=== PATIENT | female | born 1965 | race Caucasian/White ===

== ENCOUNTER 2017-10-16 11:07 | Emergency (ER) | payer OTHER, SELFPAY ==
[2017-10-16 11:10] VITALS: BP 136/72; PULSE 74; RESP 20; TEMP 36.7; O2SAT 97
[2017-10-16 11:26] LABS: Bilirubin Negative (Negative); Blood Trace-intact (Negative); Clarity Clear; Glucose Negative (Negative); Ketones Negative (Negative); Leukocyte Esterase Small (Negative); Nitrite Negative (Negative); Specific Gravity 1.015 (1.005-1.025); Urobilinogen 0.2 EU/dL (Up TO 0.2)
[2017-10-16 11:36] LABS: Bacteria Rare HPF (Negative); C & S Indicated? Yes; Casts Negative LPF (Negative); Crystals Negative HPF (Negative); Epithelial Cells Few HPF (Negative); Mucus Negative (Negative); Other Cells Few Renal (Negative); RBC 0-2 (0-2); WBC >50 HPF (0-5)
--- NOTE | 2017-10-16 11:54 | W.ED.GENAD ---
Discharge Plan Disposition Patient Disposition: HOME Condition: Fair Discharge Details Chief Complaint: Urinary Clinical Impression: UTI (urinary tract infection) Primary Care Provider: Zachery Greenwood ED Provider: Cat Gayle Home Meds and New Rx's Prescriptions: New cephalexin [Keflex] 500 mg capsule 500 mg PO BID Qty: 10 RF: 0 No Action multivitamin 1 EACH tablet 1 ea PO DAILY RF: 0 ascorbic acid (vitamin C) 1,000 MG tablet 2,000 mg PO DAILY RF: 0 omega-3 fatty acids-fish oil 1 EACH capsule 1 ea PO DAILY RF: 0 calcium carbonate-vitamin D3 [Calcium 600 with Vitamin D3] 1 EACH tablet,chewable 1 ea PO DAILY RF: 0 latanoprost 2.5 ML drops 1 drp OU DAILY RF: 0 hydrochlorothiazide 25 MG tablet 25 mg PO DAILY Qty: 90 RF: 4 Discharge Instructions Instructions: Urinary Tract Infection in Women (ED) Additional Instructions: Please encourage hydration. He may use Tylenol or ibuprofen as needed for discomfort. Pyridium will help with symptomatic management, please take as prescribed. Please take the entire course of Keflex, please finish the course even if symptoms are improved. If you continue to have persistent symptoms in the next, please follow-up with primary care. If you develop fever/chills, back pain, nausea/vomiting or other new/worsening symptoms please seek care urgently once again. Referrals: Zachery Greenwood, [Primary Care Provider] - Discharge Data Discharge Date/Time-TO BE ENTERED AT DEPARTURE: 10/16/17 12:07 Medical Decision Making MDM Narrative Medical decision making narrative: Patient presents today with 5 days of dysuria, increased frequency and urgency. She denies any fevers or chills. No CVA tenderness on exam, she denies any radiating pain. Reports that she has discomfort with urination and just after. Is not complaining of any discomfort right now. Reports that this morning she did have episode of incontinence she was unable to get to the bathroom in time. States otherwise she is feeling quite well. States it has been several years since her last urinary tract infection but the symptoms seem quite similar. She denies any new sexual partners. No dyspareunia. She denies any vaginal discharge. States that her urine has a foul odor Urinalysis concerning for small leukocytosis with WBC over 50, few epithelial cells, rare bacteria and trace amount of blood. This has been sent for culture. Given the findings of the urinalysis as well as her symptoms I am concerned for urinary tract infection. Patient will be placed on antibiotics also given a prescription for Pyridium to help with symptomatic management. Encouraged hydration. We discussed new/worsening symptoms when to seek care urgently once again. Advise follow-up with primary care in 1 week if symptoms have not completely improved. All of her questions and concerns were addressed and she is in agreement this plan Lab Data Lab Results 10/16/17 Range/Units 11:20 Urine Color Yellow (Yellow) Urine Clarity Clear Urine pH 7.0 (5-8) Ur Specific [place] 1.015 (1.005-1.025) Urine Protein Negative (Negative) mg/dL Urine Ketones Negative (Negative) mg/dL Urine Blood Trace-intact H (Negative) Urine Nitrite Negative (Negative) Urine Bilirubin Negative (Negative) Urine Urobilinogen 0.2 (Up TO 0.2) EU/dL Ur Leukocyte Esterase Small H (Negative) Urine RBC 0-2 (0-2) Urine WBC >50 (0-5) HPF Ur Epithelial Cells Few (Negative) HPF Urine Crystals Negative (Negative) HPF Urine Bacteria Rare (Negative) HPF Urine Casts Negative (Negative) LPF Urine Mucus Negative (Negative) Urine Other Few renal (Negative) Ur Culture Indicated? Yes Urine Glucose Negative (Negative) mg/dL HPI - General Adult General Mode of arrival: ambulatory. Date/Time Provider Initiated Documentation: 10/16/17 11:44. Limitations to Documentation: no limitations. Information obtained by: patient. History of Present Illness 52 year old F presents to the emergency department with the chief complaint of Dysurea, described as moderate, Quality is described as burning, and is localized to the pelvis (discomfort only with and after urination. None currently). Patient reports no radiation; denies radiation to back and abdomen. Patient started experiencing this day(s) (5) and it has been constant. No relieving factors improve symptom(s), No exacerbating factors reported . Patient notes no other symptoms.; denies fever/chills, loss of appetite, nausea/vomiting and rash. Patient did receive the following treatments prior to arrival, none Related Data Home Medications Medication Instructions Recorded Confirmed ascorbic acid (vitamin C) 2,000 mg PO DAILY 12/09/12 10/16/17 calcium carbonate-vitamin D3 1 ea PO DAILY tab.chew 12/09/12 10/16/17 [Calcium 600 With Vit D Chew Tb] multivitamin 1 ea PO DAILY 12/09/12 10/16/17 omega-3 fatty acids-fish oil 1 ea PO DAILY 12/09/12 10/16/17 latanoprost 1 drp OU DAILY drp 10/17/13 10/16/17 Previous Rx's Medication Instructions Recorded cephalexin [Keflex] 500 mg PO BID #10 cap 10/16/17 Allergies Allergy/AdvReac Type Severity Reaction Status Date / Time amlodipine AdvReac Intermediate edema Unverified 10/16/17 11:11 lisinopril AdvReac Intermediate cough Unverified 10/16/17 11:11 General Stated Complaint: Urinary SAIRA: 4 Review of Systems Constitutional Reports as per HPI, Denies chills and Denies fever(s) Cardiovascular Denies chest pain, Denies edema and Denies dyspnea Respiratory Denies cough and Denies dyspnea Gastrointestinal Reports as per HPI, Denies abdominal pain, Denies change in bowel habits, Denies nausea and Denies vomiting Genitourinary Reports as per HPI Musculoskeletal Denies back pain Integumentary/Breasts Denies erythema, Denies rash and Denies skin pain [facility] Medical History Glaucoma Hypertension Social History Smoking/Tobacco Use Status: Never Exam Const General: cooperative, healthy appearing, comfortable, no acute distress and well developed Nutritional Appearance: average body habitus Orientation: alert and awake Resp Effort & Inspection: normal respiratory effort, able to speak in complete sentences and no respiratory distress Auscultation: clear to auscultation bilaterally Cardio Rate: regular rate Rhythm: regular rhythm Heart Sounds: S1 normal and S2 normal GI Inspection: normal to inspection Palpation: soft, not firm, no guarding, not rigid and nontender Auscultation: normal bowel sounds Back/Spine/Pelvis Back: no CVA tenderness Skin General skin exam: no rashes or lesions noted Lesions: no lesions Rashes: no rashes Trauma: no lacerations or abrasions Neuro General: alert and awake Cognition: normal cognition Speech: speech normal Gait: normal gait Psych Appearance: grossly normal and well kempt Mental Status: mental status grossly normal Speech and Movement: speech and movement normal Mood: congruent mood Affect: normal affect Course Vital Signs Temperature 36.7 C 10/16/17 11:10 Pulse 74 10/16/17 11:10 Respiratory Rate 20 10/16/17 11:10 Blood Pressure 136/72 10/16/17 11:10 Pulse Oximetry 97 10/16/17 11:10 Temperature 36.7 C 10/16/17 11:10 Pulse 74 10/16/17 11:10 Respiratory Rate 20 10/16/17 11:10 Blood Pressure 136/72 10/16/17 11:10 Pulse Oximetry 97 10/16/17 11:10 Lab/Test Results Lab/Test Results: Laboratory Tests 10/16/17 11:20 Urine Color Yellow Urine Clarity Clear Urine pH 7.0 Ur Specific [place] 1.015 Urine Protein Negative Urine Ketones Negative Urine Blood Trace-intact H Urine Nitrite Negative Urine Bilirubin Negative Urine Urobilinogen 0.2 Ur Leukocyte Esterase Small H Urine RBC 0-2 Urine WBC >50 Ur Epithelial Cells Few Urine Crystals Negative Urine Bacteria Rare Urine Casts Negative Urine Mucus Negative Urine Other Few renal Ur Culture Indicated? Yes Urine Glucose Negative
[2017-10-16 12:06] VITALS: BP 138/80; PULSE 88; RESP 18; TEMP 36.8; O2SAT 99
== END 2017-10-16 12:07 | disposition home or self-care (01) ==
PROVIDERS: Student in an Organized Health Care Education/Training Program; Emergency Provider Physician Assistant; PCP Emergency Medicine
DX: N39.0 Urinary tract infection, site not specified (principal); B97.89 Other viral agents as the cause of diseases classified elsewhere; I10 Essential (primary) hypertension
CPT/HCPCS: 99283; 81003; 81015; 87086

== ENCOUNTER 2018-01-07 13:58 | Outpatient (REF) | payer OTHER, SELFPAY ==
--- NOTE | 2018-01-07 13:20 | PAPFT_PTH ---
PATIENT: Bel Carballo LOC: [facility] U#:[id number] AGE/SX: 52/F ROOM: RE01/07/[address]: Matilda Lemon : 1965 BED: DIS: 01/07/2018 SPEC #: [id number] RECD: 01/07/18 17:53 STATUS: LEVI REQ #: [id number] YOSI: 01/07/18 13:[address]: Matilda Lemon DEPT: [facility] Cytology RECD BY: Yeni Valenzuela ENTERED: 01/07/18 17:53 SP TYPE: PAPFT OTHR DR: Zachery Greenwood DO Tissues: 1 - CX/ENDOCX FOR PAP SMEARS Procedures: PAP THIN PREP/UVM Screening HPV DNA PROBE Comments: [id number]
== END 2018-01-07 14:18 ==
LOC: LBN 13:58
PROVIDERS: PCP Emergency Medicine; Visit Provider Obstetrics & Gynecology Gynecology
DX: Z12.4 Encounter for screening for malignant neoplasm of cervix (principal); Z11.51 Encounter for screening for human papillomavirus (HPV)
CPT/HCPCS: 88142; 87624

== ENCOUNTER 2018-01-18 01:02 | Outpatient (CLI) | payer OTHER, SELFPAY ==
--- NOTE | 2018-01-18 13:42 | DI.MAMMO_ITS ---
SYMPTOM/DIAGNOSIS: SCREENING, Z12.31 MAMMOGRAMS: Mammograms were interpreted according to the usual protocol including computer analysis with CAD system, tomosynthesis and C view imaging. Comparison with prior examinations. Breast density B. No suspicious masses or microcalcifications are seen. There is no definite evidence of malignancy. IMPRESSION: Negative mammogram. Routine screening is recommended. Category I. MQSA ASSESSMENT OF FINDINGS: Negative. Category 1. Patient will receive a letter notifying them of these results. BI-RADS category B. There are scattered areas of fibroglandular density.
== END 2018-01-18 01:22 ==
PROVIDERS: PCP Emergency Medicine; Visit Provider Obstetrics & Gynecology Gynecology
DX: Z12.31 Encounter for screening mammogram for malignant neoplasm of breast (principal)
CPT/HCPCS: 77063; 77067

== ENCOUNTER 2018-02-07 12:27 | Emergency (ER) | payer OTHER, SELFPAY ==
[2018-02-07 12:37] VITALS: BP 154/66; PULSE 63; RESP 20; TEMP 37.1; O2SAT 100
--- NOTE | 2018-02-12 11:13 | ED.GENADUL_ITS ---
Discharge Plan Disposition Patient Disposition: HOME Discharge Details Chief Complaint: RespSymp Clinical Impression: Cough Primary Care Provider: Zachery Greenwood ED Provider: Zakiya Leal Home Meds and New Rx's Prescriptions: Continued amino acids capsule PO RF: 0 Digestive Probiotic 3 billion cell capsule PO RF: 0 multivitamin 1 EACH tablet 1 ea PO DAILY RF: 0 ascorbic acid (vitamin C) 1,000 MG tablet 2,000 mg PO DAILY RF: 0 omega-3 fatty acids-fish oil 1 EACH capsule 1 ea PO DAILY RF: 0 latanoprost 2.5 ML drops 1 drp OU DAILY RF: 0 hydrochlorothiazide 25 mg tablet 25 mg PO DAILY Qty: 90 RF: 0 Discharge Instructions Instructions: Influenza (ED), Bacterial Pneumonia (ED), Acute Cough (ED) Additional Instructions: Please return to the emergency department if you develop any new or worsening symptoms or if you become otherwise concerned. It is extremely important that you make an appointment to be seen by your primary care doctor within the next 48 hours in follow-up for this visit. You have elected to leave the emergency department without testing for your condition. If you change your mind you may return at any time. Referrals: Zachery Greenwood, [Primary Care Provider] - Discharge Data Discharge Date/Time-TO BE ENTERED AT DEPARTURE: 02/07/18 13:47 Medical Decision Making Bel Carballo is a 52 y/o woman with h/o HTN who presented to the emergency department with 5 days of cough, body aches, nasal congestion, intermittent fevers. On exam Pt is very well and toxic appearing. Lungs clear to aucultation b/l, mucous membranes moist. Vital signs normal. Concern for flu, other viral URI, PNA, other. Exam/hx not c/w sepsis, PE, ACS, meningitis, other acute emergent life-threatening process. Plan for flu swab, CXR. Pt reports that she does not want to have the flu swab at this time. She also does want to wait for a chest xray. Pt reports that she came mostly to have a physical exam, and would prefer to wait and either return if she gets worse or see her PCP for persistent symptoms. I had a lengthy discussion with the Pt re: risks of leaving without recommended testing, that she may RTED at any time if she changes her mind, RTED precautions, and importance of outpt f/u with PCP. Pt verbalizes understand of the plan and is amenable. Medical Records Medical records reviewed: Yes I reviewed the patient's medical records. HPI General Mode of arrival: ambulatory . Date/Time Provider Initiated Documentation: 02/07/18 12:59 . Limitations to Documentation: no limitations . Information obtained by: patient, family, RN notes reviewed and old records reviewed . HPI Narrative: Bel Carballo is a 52 y/o woman with h/o HTN presenting to the emergency department with cough. Pt reports that for the past 5 days she has had productive cough, generalized body aches, runny nose and congestion, intermittent fever, and fatigue. SHe has felt mildly SOB with coughing, but otherwise has not had dyspnea. Pt reports that she came to the emergency department because she was concerned that she might have the flu or pneumonia. She denies pain other than general myalgias. No n/v/d, no rash, no n/t/weakness. Has been eating and drinking as usual. No recent travel. Related Data Home Medications Medication Instructions Recorded Confirmed ascorbic acid (vitamin C) 2,000 mg PO DAILY 12/09/12 02/07/18 multivitamin 1 ea PO DAILY 12/09/12 02/07/18 omega-3 fatty acids-fish oil 1 ea PO DAILY 12/09/12 02/07/18 latanoprost 1 drp OU DAILY drp 10/17/13 02/07/18 hydrochlorothiazide 25 mg tablet 25 mg PO DAILY #90 tab 12/14/17 02/07/18 L.acidophilus,gasseri,rhamnosus-B.bifidum,long cap PO cap 01/07/18 01/07/18 3 billion cell capsule amino acids capsule cap PO cap 01/07/18 01/07/18 Previous Rx's Medication Instructions Recorded hydrochlorothiazide 25 mg tablet 25 mg PO DAILY #90 tab 12/14/17 Allergies Allergy/AdvReac Type Severity Reaction Status Date / Time amlodipine AdvReac Intermediate edema Unverified 02/07/18 12:42 lisinopril AdvReac Intermediate cough Unverified 02/07/18 12:42 General Stated Complaint: RespSymp SAIRA: 3 Review of Systems Review of Systems Constitutional: reports fevers Eyes: denies eye pain ENT: denies facial pain, dental pain, reports mild sore throat Cardiovascular: denies chest pain, edema Respiratory: denies SOB, reports cough GI: denies abdominal pain, vomiting, diarrhea : denies flank pain MSK: denies back pain, neck pain, arthralgias, reports myalgias Skin: denies rash Neuro: denies headaches, lightheadedness, weakness PFSH Medical History Dry eyes (Acute) Dyspareunia (Acute) Multinodular goiter (Acute) Glaucoma Hypertension Social History household members: spouse and other details: is named Maynor. number of children: 1 frequency: daily duration: 15-30 minutes/day Smoking/Tobacco Use Status: Never alcohol intake: never substance use type: does not use seatbelt use: always Female Reproductive History Menstrual control method: none Menopause type: natural (2016) History History 1 Para Hx # Term Pregnancies 1 Multiple births Hx # Pregnancies Ectopic pregnancies AB induced Hx Number of Living Children AB spontaneous Exam Narrative Exam Narrative: Constitutional: well and [id number]-[id number], pleasant, conversing normally HENT: head atraumatic, normocephalic normal inspection, mucous membranes moist Eyes: conjunctiva normal, sclera normal, pupils 3mm b/l Neck: no stridor, normal ROM, trachea midline Resp: normal work of breathing, LCTAB Cardio: normal rate, normal rhythm, 3/6 murmur Pt reports as known to her Skin: warm, dry, normal color, no rash Neuro: alert, not altered, grossly non-focal, normal tone Ext: no edema Psych: normal mood, normal affect, normal behavior Course Vital Signs Temperature 37.1 C 02/07/18 12:37 Pulse 63 02/07/18 12:37 Respiratory Rate 20 02/07/18 12:37 Blood Pressure 154/66 H 02/07/18 12:37 Pulse Oximetry 100 02/07/18 12:37 Temperature 37.1 C 02/07/18 12:37 Temperature Source Temporal Artery Scan 02/07/18 12:37 Pulse 63 02/07/18 12:37 Respiratory Rate 20 02/07/18 12:37 Respiratory Effort Non-Labored 02/07/18 12:42 Respiratory Depth Normal 02/07/18 12:42 Blood Pressure 154/66 H 02/07/18 12:37 Blood Pressure Position Sitting 02/07/18 12:37 Pulse Oximetry 100 02/07/18 12:37 Oxygen Delivery Method Room Air 02/07/18 12:37 Oxygen Flow Rate 0 02/07/18 12:37 Pain Level 0 02/07/18 12:37
== END 2018-02-07 13:47 | disposition home or self-care (01) ==
PROVIDERS: Emergency Provider Student in an Organized Health Care Education/Training Program; PCP Emergency Medicine
DX: R05 Cough (principal); Z53.29 Procedure and treatment not carried out because of patient's decision for other reasons
CPT/HCPCS: 99282

== ENCOUNTER 2018-08-05 08:01 | Outpatient (CLI) | payer BC, SELFPAY ==
--- NOTE | 2018-08-05 13:59 | DI.US_ITS ---
SYMPTOMS/DIAGNOSIS: PELVIC AND PERINEAL PAIN, R10.2 PELVIC ULTRASOUND: Pelvic ultrasound was performed transabdominally and transvaginally. Please see the accompanying data sheet for measurements of pelvic structures. There is a 22 mm in diameter simple cyst of the right ovary. Otherwise, the ovaries are unremarkable in appearance. A 10 mm fundal uterine fibroid noted to the right of midline. Nabothian cysts noted. There is a probable endocervical polyp measuring about 11 x 4 x 8 mm in diameter with some intralesional vascular flow noted. No fluid identified in the cul-de-sac. Limited scanning of the kidneys is unremarkable. Endometrial stripe is homogeneous and about 9 mm in thickness. CONCLUSION: 1. Findings suggesting endometrial polyp just above the level of the cervix as described above. 2. Simple cyst, right ovary, 22 mm in greatest diameter.
== END 2018-08-05 08:21 ==
PROVIDERS: PCP Emergency Medicine; Visit Provider Nurse Practitioner Family
DX: R10.2 Pelvic and perineal pain (principal); N84.0 Polyp of corpus uteri; N83.291 Other ovarian cyst, right side; D25.9 Leiomyoma of uterus, unspecified
CPT/HCPCS: 76830; 76856

== ENCOUNTER 2019-01-24 09:37 | Outpatient (CLI) | payer BC, SELFPAY ==
--- NOTE | 2019-01-24 15:37 | DI.MAMMO_ITS ---
EXAM: MAMMO SCREENING CLINICAL HISTORY: Screening, Z12.39. TECHNIQUE: Full field digital CC and MLO mammographic images were obtained with 3D tomosynthesis and utilizing computer aided detection (CAD). COMPARISON: 2009 through 2017 FINDINGS: Breast Density - Category B - Scattered areas of fibroglandular density Masses/Architectural Distortion: None seen. Microcalcifications: No suspicious pleomorphic-type calcifications are seen. Skin Thickening/Nipple Retraction: None. Axilla: Unremarkable. IMPRESSION: 1. BI-RADS category 1, negative. No significant interval change with no specific features of maligna ncy noted. 2. Unless there is more urgent need, screening mammography is recommended, as per [employer] guidelines. BI-RADS Cat 1 - Negative Breast Density - Category B - Scattered areas of fibroglandular density A negative radiographic report should not delay biopsy if a dominant or clinically suspicious mass is present. Up to ten percent of cancers are not identified on mammography. A negative report may reinforce clinical impression. Adenosis and dense breasts may obscure an underlying neoplasm. False positive reports average 6 to 10%. Patient will receive a letter notifying them of these results.
== END 2019-01-24 09:57 ==
PROVIDERS: PCP Emergency Medicine; Visit Provider Obstetrics & Gynecology Gynecology
DX: Z12.31 Encounter for screening mammogram for malignant neoplasm of breast (principal)
CPT/HCPCS: 77063; 77067

== ENCOUNTER 2020-02-13 00:57 | Outpatient (CLI) | payer BC, SELFPAY ==
--- NOTE | 2020-02-13 16:00 | DI.MAMMO_ITS ---
EXAM: MG MAMMO SCREENING CLINICAL HISTORY: screening. TECHNIQUE: Bilateral full field digital CC and MLO mammographic images were obtained with 3D tomosyn thesis and utilizing computer aided detection (CAD). COMPARISON: Prior mammograms dating back to 2010, the most recent being January 2019. FINDINGS: There are no CAD designations. There are no spiculated masses nor malignant appearing microcalcification groups. There is no signif icant architectural distortion nor skin thickening-retraction. IMPRESSION: No radiographic evidence of malignancy. BI-RADS Category 1 - Negative Breast Density - Category B - Scattered areas of fibroglandular density Breast density Category C or D implies that the patient has dense breast tissue. Dense breast tissue can make it harder to find cancer on a mammogram. Dense breast tissue is also associated with an incr eased risk of breast cancer. This information about the result of the mammogram report was provided to the patient to raise their awareness. Use this report when you speak with the patient about their risks for breast cancer, which includes their family history. At that time, you may recommend additional screening tests (Ultrasoun d or MRI) as these tests may add significant information. A negative radiographic report should not delay biopsy if a dominant or clinically suspicious mass is present. Up to ten percent of cancers are not identified on mammography. A negative report may reinforce clinical impression. Adenosis and dense breasts may obscure an underlying neoplasm. False positive reports average 6 to 10%. Patient will receive a letter notifying them of these results.
== END 2020-02-13 01:17 ==
PROVIDERS: PCP Emergency Medicine; Visit Provider Nurse Practitioner Family
DX: Z12.31 Encounter for screening mammogram for malignant neoplasm of breast (principal)
CPT/HCPCS: 77063; 77067

== ENCOUNTER 2021-02-13 15:58 | Outpatient (REF) | payer BC, SELFPAY ==
--- NOTE | 2021-02-13 15:15 | PAPFT_PTH ---
PATIENT: Bel Carballo LOC: [facility] U#:[id number] AGE/SX: 55/F ROOM: RE02/13/[address]: Matilda Lemon : 1965 BED: DIS: 02/13/2021 SPEC #: [id number] RECD: 02/13/21 17:53 STATUS: LEVI REPrachi #: [id number] YOSI: 02/13/21 15:[address]: Matilda Lemon DEPT: [facility] Cytology RECD BY: Yeni Valenzuela ENTERED: 02/13/21 17:53 SP TYPE: PAPFT OTHR DR: Zachery Greenwood, Tissues: 1 - CX/ENDOCX FOR PAP SMEARS Procedures: PAP THIN PREP/UVM Screening HPV DNA PROBE Comments: [id number]
== END 2021-02-13 15:59 | disposition home or self-care (01) ==
LOC: LBN 15:58
PROVIDERS: PCP Emergency Medicine; Visit Provider Obstetrics & Gynecology Gynecology
DX: Z12.4 Encounter for screening for malignant neoplasm of cervix (principal); Z11.51 Encounter for screening for human papillomavirus (HPV); Z01.419 Encounter for gynecological examination (general) (routine) without abnormal findings
CPT/HCPCS: 88142; 87624

== ENCOUNTER 2021-02-19 01:05 | Outpatient (CLI) | payer BC, SELFPAY ==
--- NOTE | 2021-02-19 16:30 | DI.MAMMO_ITS ---
Exam(s) MAMMO SCREENING EXAM: MAMMO SCREENING CLINICAL HISTORY: screening. TECHNIQUE: Bilateral full field digital CC and MLO mammographic images were obtained with 3D tomosyn thesis and utilizing computer aided detection (CAD). COMPARISON: Prior mammograms dating back to 2011, the most recent being February 2020. FINDINGS: There are no CAD designations. There are no new spiculated masses nor malignant appearing microcalcification groups. There is no significant architectural distortion nor skin thickening-retraction. IMPRESSION: No radiographic evidence of malignancy. BI-RADS Category 1 - Negative Breast Density - Category B - Scattered areas of fibroglandular density Breast density Category C or D implies that the patient has dense breast tissue. Dense breast tissue can make it harder to find cancer on a mammogram. Dense breast tissue is also associated with an incr eased risk of breast cancer. This information about the result of the mammogram report was provided to the patient to raise their awareness. Use this report when you speak with the patient about their risks for breast cancer, which includes their family history. At that time, you may recommend additional screening tests (Ultrasoun d or MRI) as these tests may add significant information. A negative radiographic report should not delay biopsy if a dominant or clinically suspicious mass is present. Up to ten percent of cancers are not identified on mammography. A negative report may reinforce clinical impression. Adenosis and dense breasts may obscure an underlying neoplasm. False positive reports average 6 to 10%. Patient will receive a letter notifying them of these results.
== END 2021-02-19 01:25 ==
PROVIDERS: PCP Emergency Medicine; Visit Provider Obstetrics & Gynecology Gynecology
DX: Z12.31 Encounter for screening mammogram for malignant neoplasm of breast (principal)
CPT/HCPCS: 77063; 77067

== ENCOUNTER 2022-02-04 15:05 | Outpatient (CLI) | payer BC, SELFPAY ==
--- NOTE | 2022-02-04 14:45 | DI.RAD_ITS ---
Exam(s) XR CHEST 2V PA LATERAL EXAM: XR CHEST 2V PA LATERAL CLINICAL HISTORY: posterior cervical lymphadenopathy,r59.1 TECHNIQUE: 2D digital imaging was performed of the chest. Two images were obtained. PA and lateral views were obtained. COMPARISON: No exams were available for comparison FINDINGS: MEDIASTINUM: Normal. HEART: Normal. PULMONARY VASCULATURE: Normal. LUNGS: Clear. PLEURAL SPACE: No pleural effusion or pneumothorax. BONE:Within normal limits for the patient's age. OTHER FINDINGS:Normal. IMPRESSION: No acute pulmonary findings. DATA REPOSITORY: RADIATION DOSE DELIVERED:
== END 2022-02-04 15:25 ==
PROVIDERS: PCP Nurse Practitioner Family; Visit Provider Nurse Practitioner Family
DX: R59.0 Localized enlarged lymph nodes (principal)
CPT/HCPCS: 71046

== ENCOUNTER 2022-02-05 13:07 | Outpatient (REF) | payer BC, SELFPAY ==
[2022-02-04 21:13] LABS: Abs Immature Grans 0.01 10^3/uL (0.0-0.06); Absolute Basophil Count 0.03 10^3/uL (0.0-0.2); Absolute Lymphocyte Count 1.16 10^3/uL (1.2-3.4); Absolute Monocyte Count 0.39 10^3/uL (0.1-0.8); Absolute Neutrophil Count 4.23 10^3/uL (1.2-6.7); Basophils % 0.5; Eosinophils % 3.3; HCT 43.4 % (36.0-46.0); HGB 14.2 g/dL (11.2-15.7); Immature Grans % 0.2; Lymphocytes % 19.3; MCH 28.5 pg (27.0-33.0); MCHC 32.7 % (32.0-36.0); MCV 87 fL (80-95); MPV 10.9 fL (8.0-11.0); Monocytes % 6.5; Neutrophils % 70.2; Platelet Count 161 10^3/uL (130-400); RBC 4.98 10^6/uL (3.93-5.22); RDW 13.2 % (11.7-14.6); RDW-SD 41.9 fL; WBC 6.02 10^3/uL (4.4-10.8)
[2022-02-04 21:32] LABS: ALT 36 U/L (14-59); AST 30 U/L (15-37); Albumin 4.1 g/dL (3.4-5.0); Alkaline Phosphatase 115 U/L (46-116); BUN 21 mg/dL (7-18); Bilirubin, Total 0.6 mg/dL (0.2-1.0); CREATININE 0.8 mg/dL (0.55-1.02); Calcium 8.9 mg/dL (8.5-10.1); Calculated LDL 136 mg/dL (<100); Chloride 104 mmol/L (98-107); Cholesterol 225 mg/dL (<200); Estimated GFR 85.89 (mL/min/1.73m2); Glucose 114 mg/dL (74-106); HDL Cholesterol 78 mg/dL (40-60); Potassium 3.7 mmol/L (3.5-5.1); Sodium 141 mmol/L (136-145); TSH (W/Ref FT4) 0.82 uIU/mL (0.36-3.74); Triglyceride 58 mg/dL (<150)
[2022-02-04 21:48] LABS: Mono Screening Negative (Negative)
[2022-02-06 09:50] LABS: HIV-1/2 Ag & Ab Screen Negative (Negative)
[2022-02-06 10:17] LABS: Hepatitis C Ab w Rflx HCV PCR Negative (Negative)
== END 2022-02-05 13:08 | disposition home or self-care (01) ==
LOC: LBN 13:07
PROVIDERS: PCP Nurse Practitioner Family; Visit Provider Nurse Practitioner Family
DX: R59.1 Generalized enlarged lymph nodes (principal); I10 Essential (primary) hypertension; Z11.59 Encounter for screening for other viral diseases
CPT/HCPCS: 80053; 80061; 86803; 87389; 84443; 85025; 86308

== ENCOUNTER 2022-03-02 01:25 | Outpatient (CLI) | payer BC, SELFPAY ==
--- NOTE | 2022-03-02 06:30 | DI.MAMMO_ITS ---
Exam(s) MAMMO SCREENING EXAM: MAMMO SCREENING CLINICAL HISTORY: screening,z12.39 TECHNIQUE: Mammograms were interpreted according to the usual protocol including computer analysis w [employer] CAD system, tomosynthesis and C-view imaging. COMPARISON: CR XR CHEST 2V PA LATERAL from 02/04/2022 mammograms 2012 through 2021 FINDINGS: The breasts are composed of scattered fibroglandular densities, Breast Density category B. No suspicious masses or suspicious microcalcifications are seen. No skin thickening is seen. There has been interval enlargement of bilateral axillary lymph nodes wh en compared with the previous examinations. There has been no significant change in the appearance of the breasts from prior exams. IMPRESSION: BI-RADS Category 0 - Assessment Incomplete: Need additional imaging evaluation. Enlarged axillary ly mph nodes. Clinical correlation recommended regarding adenopathy in other sites. A CT could be perf ormed for further evaluation. No abnormality identified in the breast tissue. Yearly screening mammography is recommended. Breast Density - Category B, scattered fibroglandular densities. A negative radiographic report should not delay biopsy if a dominant or clinically suspicious mass is present. Up to ten percent of cancers are not identified on mammography. A negative report may reinforce clinical impression. Adenosis and dense breasts may obscure an underlying neoplasm. False positive reports average 6 to 10%. Patient will receive a letter notifying them of these results.
== END 2022-03-02 01:45 ==
PROVIDERS: PCP Nurse Practitioner Family; Visit Provider Nurse Practitioner Family
DX: Z12.31 Encounter for screening mammogram for malignant neoplasm of breast (principal); R59.0 Localized enlarged lymph nodes; R92.8 Other abnormal and inconclusive findings on diagnostic imaging of breast
CPT/HCPCS: 77063; 77067

== ENCOUNTER 2022-03-09 15:42 | Outpatient (REF) | payer BC, SELFPAY ==
--- NOTE | 2022-03-09 15:00 | PAPNONF_PTH ---
PATIENT: Bel Carballo LOC: [facility] U#:[id number] AGE/SX: 57/F ROOM: RE03/09/[address]: James Hyman MD : 1965 BED: DIS: 03/09/2022 SPEC #: [id number] RECD: 03/09/22 18:27 STATUS: LEVI REPrachi #: [id number] YOSI: 03/09/22 15:[address]: James Hyman DEPT: [facility] Cytology RECD BY: Yeni Valenzuela ENTERED: 03/09/22 18:29 SP TYPE: [facility] [place] DR: Kwesi Fisher DNP Tissues: 1 - BODY FLUID CYTO-FINE NEEDLE ASPIRATE-[facility] Procedures: BODY FLUID CYTO-FINE NEEDLE ASPIRATE-[facility] Comments: [id number] (REFRIGERATED)
== END 2022-03-09 15:43 | disposition home or self-care (01) ==
LOC: LBN 15:42
PROVIDERS: PCP Nurse Practitioner Family; Visit Provider Otolaryngology
DX: R59.0 Localized enlarged lymph nodes (principal); Z80.7 Family history of other malignant neoplasms of lymphoid, hematopoietic and related tissues
CPT/HCPCS: 88104

== ENCOUNTER 2022-06-08 09:42 | Day surgery (SDC) | payer BC, SELFPAY ==
[2022-06-08 10:31] VITALS: BP 145/71; PULSE 68; RESP 16; TEMP 37; O2SAT 99
[2022-06-08] MEDS: Lidocaine 1% Multi-Dose W/EPI 1/100,000 50 ML VIAL (11:46)
--- NOTE | 2022-06-08 12:11 | LYM_PTH ---
PATIENT: Bel Carballo LOC: [facility] U#:[id number] AGE/SX: 57/F ROOM: RE06/08/[address]: James Hyman MD : 1965 BED: DIS: 06/08/2022 SPEC #: [id number] RECD: 06/08/22 12:48 STATUS: LEVI REQ #: [id number] YOSI: 06/08/22 12:[address]: James Hyman DEPT: Surgical Specimen RECD BY: Yeni Valenzuela ENTERED: 06/08/22 12:50 SP TYPE: LYM OTHR DR: Kwesi Fisher, RAÚL Tissues: 1 - LYMPH NODE BIOPSY 2 - FLOW CYTOMETRY NODE/TISSUE Procedures: GROSS AND MICRO LEVEL 4 IMMUNOPEROXIDASE STAIN FLOW CYTOMETRY LYMPHOMA PNL Comments: [id number] (FLOW CYTOMETRY - [id number])
--- NOTE | 2022-06-08 12:22 | PDOC.DSDIS_ITS ---
Date of service: 06/08/22 Time of Service: 12:24 Discharge Plan Disposition Patient Disposition: Home Condition: Good Discharge Details Reason For Visit: Lymph node biopsy Attending Provider: James Hyman Primary Care Provider: Kwesi Chavez Home Meds and New Rx's Prescriptions: No Action timolol 0.5 % drops 1 drp ophthalmic (eye) BID hydrochlorothiazide 25 mg tablet 25 mg PO DAILY Qty: 90 3RF magnesium gluconate 27 mg magnesium (500 mg) tablet 27 mg PO HS cranberry extract PO multivitamin 1 EACH tablet 1 ea PO DAILY omega-3 fatty acids-fish oil 1 EACH capsule 1 ea PO DAILY latanoprost 2.5 ML drops 1 drp OU DAILY ascorbic acid (vitamin C) 1,000 mg tablet 2 g PO DAILY Rx Instructions: 2 TABS DAILY Discharge Instructions Additional Instructions: Remove dressing after shower tomorrow and do not replace. Apply bacitracin 2 times daily for 3 days once the bandages removed. Avoid heavy lifting or straining for the next couple of days. Ibuprofen or Tylenol for discomfort. Call with any concerns or problems. My cell phone number is [phone]. If you are unable to reach me and you feel it is an emergency, please proceed to the emergency room or call 911 Referrals: James Hyman MD [ [facility] STAFF PHYSICIAN] - (To be determined by biopsy outcome-I will call the patient) Diet:: As Tolerated
--- NOTE | 2022-06-08 12:26 | ROE_ITS ---
Date of service: 06/08/22 Time of Service: 12:26 Operative Note Operative Note DATE OF PROCEDURE: 06/08/22 PRE-OP DIAGNOSIS: Lymphadenopathy POST-OP DIAGNOSIS: same PROCEDURE: Open biopsy, right posterior triangle cervical lymph node SURGEON: James Hyman MANAGER CREATIVE SERVICES: Griselda Casas ANESTHESIA TYPE: Local By Surgeon Refer to Anesthesia Record ESTIMATED BLOOD LOSS: 2 PATHOLOGY: other (RPMI specimen for flow cytometry, permanent specimen as well) COMPLICATIONS: None Patient was transported to: PACU Patient's condition: stable Indications: The patient has persistent bilateral cervical lymphadenopathy with the largest lymph nodes in the right posterior triangle. FNA was consistent with inflammatory lymph node, but the lymphadenopathy remains. I recommended open biopsy. The patient wished to proceed. Risks and benefits were discussed at length. Consent was obtained prior to surgery. H&P was reviewed. There have been no changes. Findings: Friable lymph node, right posterior triangle, mobile Procedure Description: The patient was positioned in a supine position with her head turned to the left. She was prepped and draped in appropriate fashion. 1% lidocaine with 1/100,000 epinephrine was injected around the lesion and then a transverse incision was made measuring approximately 1.5 cm over the lymph node. Dissection was continued down through the platysma plane to the lymph nodes. The lymph nodes were found to be very friable and as a result it was removed piecemeal. There is no significant bleeding. Once the lymph node been removed, it was partially morselized and placed into RPMI and partially placed in formalin for permanent section. After ensuring adequate hemostasis, and palpating the wound to make sure there is no residual lymph node, the wound was closed in a single layer of inverted interrupted 4.0 Monocryl sutures. Sterile dressing was applied. The patient tolerated the procedure well. Her vital signs remained stable. She was transported back to recovery room in stable co ndition. I was present throughout the entire case.
[2022-06-08 12:27] VITALS: BP 160/69; PULSE 63; RESP 16; TEMP 36.5; O2SAT 98
[2022-06-08] MEDS: Ibuprofen 600 MG TAB PO (12:59)
== END 2022-06-08 13:03 | disposition home or self-care (01) ==
PROVIDERS: PCP Nurse Practitioner Family; Visit Provider Otolaryngology
PROC: 0HB4XZZ Excision of Neck Skin, External Approach (ICD-10-PCS; CPT 38510; principal; 2022-06-08 11:45)
DX: C82.91 Follicular lymphoma, unspecified, lymph nodes of head, face, and neck (principal)
CPT/HCPCS: 38510; 88305; 88184; 88185; 88361

== ENCOUNTER 2022-09-04 01:26 | Outpatient (CLI) | payer BC, SELFPAY ==
[2022-09-04 15:25] LABS: Abs Immature Grans 0.01 10^3/uL (0.0-0.06); Absolute Basophil Count 0.02 10^3/uL (0.0-0.2); Absolute Eosinophil Count 0.11 10^3/uL (0.0-0.7); Absolute Lymphocyte Count 0.97 10^3/uL (1.2-3.4); Absolute Monocyte Count 0.39 10^3/uL (0.1-0.8); Absolute Neutrophil Count 3.16 10^3/uL (1.2-6.7); Basophils % 0.4; Eosinophils % 2.4; HCT 43.9 % (36.0-46.0); HGB 14.9 g/dL (11.2-15.7); Immature Grans % 0.2; Lymphocytes % 20.8; MCH 28.9 pg (27.0-33.0); MCHC 33.9 % (32.0-36.0); MCV 85 fL (80-95); MPV 9.8 fL (8.0-11.0); Monocytes % 8.4; Neutrophils % 67.8; Platelet Count 148 10^3/uL (130-400); RBC 5.16 10^6/uL (3.93-5.22); RDW 12.1 % (11.7-14.6); RDW-SD 37.5 fL; WBC 4.66 10^3/uL (4.4-10.8)
[2022-09-04 16:57] LABS: ALT 40 U/L (14-59); AST 37 U/L (15-37); Albumin 4.2 g/dL (3.4-5.0); Alkaline Phosphatase 98 U/L (46-116); Anion Gap 6.4 mmol/L (3-11); BUN 28 mg/dL (7-18); Bilirubin, Total 0.6 mg/dL (0.2-1.0); CO2 33.6 mmol/L (21.0-32.0); CREATININE 0.8 mg/dL (0.55-1.02); Calcium 9.5 mg/dL (8.5-10.1); Chloride 99 mmol/L (98-107); Estimated GFR 85.35 (mL/min/1.73m2); Glucose 126 mg/dL (74-106); LDH 195 U/L (81-234); Potassium 3.7 mmol/L (3.5-5.1); Sodium 139 mmol/L (136-145); Total Protein 7.5 g/dL (6.4-8.2)
== END 2022-09-04 01:27 | disposition home or self-care (01) ==
LOC: LBO 01:26
PROVIDERS: PCP Nurse Practitioner Family; Visit Provider Internal Medicine Hematology & Oncology
DX: C82.91 Follicular lymphoma, unspecified, lymph nodes of head, face, and neck (principal)
CPT/HCPCS: 36415; 80053; 83615; 85025

== ENCOUNTER → 2023-03-08 01:29 | Outpatient (CLI) | payer BC, SELFPAY ==
--- NOTE | 2023-03-08 08:00 | DI.MAMMO_ITS ---
Exam(s) MAMMO SCREENING EXAM: MAMMO SCREENING CLINICAL HISTORY: screening,Z12.39 TECHNIQUE: Bilateral full field digital CC and MLO mammographic images were obtained with 3D tomosyn thesis and utilizing computer aided detection (CAD). COMPARISON: Available for comparison. FINDINGS: Masses/Architectural Distortion: None seen. Microcalcifications: No suspicious pleomorphic-type are seen. Skin Thickening/Nipple Retraction: None. There are enlarged lymph nodes seen in the left axilla. IMPRESSION: 1. No significant interval change with no specific features of malignancy noted. 2. Unless there is more urgent need, screening mammography is recommended, as per [place] [employer] guidelines. 3. Enlarged left axillary lymph nodes are again seen. The patient has a personal history of follicul ar lymphoma. If clinically indicated, a CT scan of the chest may be obtained for further evaluation. BI-RADS Category 1 - Negative Breast Density - Category B - Scattered areas of fibroglandular density Breast density category C or D implies that the patient has dense breast tissue. Dense breast tissue is very common and is not abnormal but dense breast tissue can make it harder to find cancer on a ma mmogram. Also, dense breast tissue may increase their breast cancer risk. This information about the result of the mammogram report was provided to the patient to raise their awareness. Use this report when you speak with the patient about their risks for breast cancer, which includes their family hist ory. At that time, you may recommend for more screening tests (Ultrasound or MRI) as they might be us eful based on their risk. A negative radiographic report should not delay biopsy if a dominant or clinically suspicious mass is present. Up to ten percent of cancers are not identified on mammography. A negative report may reinforce clinical impression. Adenosis and dense breasts may obscure an underlying neoplasm. False positive reports average 6 to 10%. Patient will receive a letter notifying them of these results.
== END ==
PROVIDERS: PCP Nurse Practitioner Family; Visit Provider Obstetrics & Gynecology Gynecology
DX: Z12.31 Encounter for screening mammogram for malignant neoplasm of breast (principal)
CPT/HCPCS: 77063; 77067

== ENCOUNTER 2023-03-17 02:47 | Outpatient (CLI) | payer BC, SELFPAY ==
[2023-03-17 15:33] LABS: Abs Immature Grans 0.03 10^3/uL (0.0-0.06); HCT 43.4 % (36.0-46.0); HGB 14.4 g/dL (11.2-15.7); MCH 29.3 pg (27.0-33.0); MCHC 33.2 % (32.0-36.0); MCV 88 fL (80-95); MPV 9.3 fL (8.0-11.0); Platelet Count 134 10^3/uL (130-400); RBC 4.92 10^6/uL (3.93-5.22); RDW 13.3 % (11.7-14.6); RDW-SD 43.1 fL; WBC 17.86 10^3/uL (4.4-10.8)
[2023-03-17 15:48] LABS: Absolute Lymphocyte Count 14.29 10^3/uL (1.2-3.4); Absolute Monocyte Count 0.36 10^3/uL (0.1-0.8); Absolute Neutrophil Count 3.21 10^3/uL (1.2-6.7); Atypical Lymphocytes % 3
[2023-03-17 15:49] LABS: Diff Comment Manual Differential; RBC Morphology Normal
[2023-03-17 16:33] LABS: ALT 32 U/L (14-59); AST 28 U/L (15-37); Albumin 3.8 g/dL (3.4-5.0); Alkaline Phosphatase 122 U/L (46-116); Anion Gap 8.9 mmol/L (3-11); BUN 23 mg/dL (7-18); Bilirubin, Total 0.8 mg/dL (0.2-1.0); CO2 32.1 mmol/L (21.0-32.0); CREATININE 0.8 mg/dL (0.55-1.02); Calcium 9.7 mg/dL (8.5-10.1); Chloride 100 mmol/L (98-107); Estimated GFR 84.82 (mL/min/1.73m2); Ferritin 227 ng/mL (8-252); Glucose 119 mg/dL (74-106); Potassium 3.7 mmol/L (3.5-5.1); Sodium 141 mmol/L (136-145); Total Protein 7.5 g/dL (6.4-8.2)
[2023-03-17 16:52] LABS: Iron 33 ug/dL (50-170); Total Iron Binding Capacity 301 ug/dL (250-450); Transferrin Sat 11 % (15-50)
[2023-03-17 16:57] LABS: LDH 240 U/L (81-234)
== END 2023-03-17 02:48 | disposition home or self-care (01) ==
LOC: LBO 02:47
PROVIDERS: PCP Nurse Practitioner Family; Visit Provider Internal Medicine Hematology & Oncology
DX: I10 Essential (primary) hypertension (principal)
CPT/HCPCS: 36415; 80048; 80053; 82728; 83540; 83550; 83615; 85025

== ENCOUNTER 2023-05-05 04:36 | Outpatient (RCR) | payer BC, SELFPAY ==
[2023-05-05] MEDS: Normal Saline Flush 10 ML SYR IVP (08:42)
[2023-05-05 08:57] LABS: Abs Immature Grans 0.07 10^3/uL (0.0-0.06); Absolute Neutrophil Count 4.12 10^3/uL (1.2-6.7); Basophils % 0.1; Eosinophils % 0.3; HCT 41.1 % (36.0-46.0); HGB 13.7 g/dL (11.2-15.7); Immature Grans % 0.1; Lymphocytes % 89.7; MCH 29.8 pg (27.0-33.0); MCHC 33.3 % (32.0-36.0); MCV 90 fL (80-95); MPV 9.7 fL (8.0-11.0); Monocytes % 1.1; Neutrophils % 8.7; Platelet Count 124 10^3/uL (130-400); RBC 4.59 10^6/uL (3.93-5.22); RDW 13.5 % (11.7-14.6); RDW-SD 43.8 fL
[2023-05-05 09:10] LABS: Absolute Basophil Count 0.05 10^3/uL (0.0-0.2); Absolute Eosinophil Count 0.14 10^3/uL (0.0-0.7); Absolute Lymphocyte Count 42.46 10^3/uL (1.2-3.4); Absolute Monocyte Count 0.52 10^3/uL (0.1-0.8)
[2023-05-05 09:17] LABS: ALT 38 U/L (14-59); AST 37 U/L (15-37); Albumin 3.7 g/dL (3.4-5.0); Alkaline Phosphatase 125 U/L (46-116); Anion Gap 6.5 mmol/L (3-11); BUN 20 mg/dL (7-18); Bilirubin, Total 0.6 mg/dL (0.2-1.0); CO2 30.5 mmol/L (21.0-32.0); CREATININE 0.7 mg/dL (0.55-1.02); Calcium 9.3 mg/dL (8.5-10.1); Chloride 104 mmol/L (98-107); Estimated GFR 99.57 (mL/min/1.73m2); Glucose 89 mg/dL (74-106); LDH 267 U/L (81-234); PHOSPHORUS 4.1 mg/dL (2.6-4.7); Sodium 141 mmol/L (136-145); Uric Acid 4.1 mg/dL (2.6-6.0)
[2023-05-05 09:27] LABS: WBC 47.33 10^3/uL (4.4-10.8)
[2023-05-05 09:28] LABS: Diff Comment Agrees w/ Instrument; RBC Morphology Normal
== END 2023-05-09 23:59 | disposition home or self-care (01) ==
LOC: INF 04:36
PROVIDERS: Nurse Practitioner Adult Health; PCP Nurse Practitioner Family; Visit Provider Internal Medicine Hematology & Oncology
DX: C82.90 Follicular lymphoma, unspecified, unspecified site (principal); Z45.2 Encounter for adjustment and management of vascular access device
CPT/HCPCS: 36591; 80053; 83615; 84100; 84550; 85025

== ENCOUNTER 2023-05-17 09:07 | Emergency (ER) | payer BC, SELFPAY ==
[2023-05-17 09:12] VITALS: BP 130/62; PULSE 87; RESP 18; TEMP 36.6
--- NOTE | 2023-05-17 11:01 | W.ED.GENAD ---
Discharge Plan Disposition Patient Disposition: Home Condition: Stable Discharge Details Clinical Impression: Rash, Allergic reaction Primary Care Provider: Kwesi Chavez ED Provider: Priscilla Perez Home Meds and New Rx's Prescriptions: New prednisone 20 mg tablet 40 mg PO DAILY 5 Days Qty: 10 0RF Rx Instructions: Take 2 tablets daily x 5 days Continued timolol 0.5 % drops 1 drp ophthalmic (eye) BID magnesium gluconate 27 mg magnesium (500 mg) tablet 27 mg PO HS cranberry extract PO multivitamin 1 EACH tablet 1 ea PO DAILY omega-3 fatty acids-fish oil 1 EACH capsule 1 ea PO DAILY latanoprost 2.5 ML drops 1 drp OU DAILY ascorbic acid (vitamin C) 1,000 mg tablet 2 g PO DAILY Rx Instructions: 2 TABS DAILY hydrochlorothiazide 25 mg tablet 25 mg PO DAILY Qty: 90 3RF acyclovir 400 mg tablet Patient Comments: TAKE ONE TABLET BY MOUTH TWO TIMES A DAY allopurinol 300 mg tablet Patient Comments: TAKE ONE TABLET BY MOUTH DAILY Discharge Instructions Instructions: Acute Rash (ED), General Allergic Reaction (ED) Additional Instructions: Please follow up with your oncology team. No evidence of neutropenia or abnormality in your labs today. chest xray within normal limits. Follow up with primary care provider in 3-5 days. Return to ED sooner if any worsening or concerns. Continue to take Benadryl 1 to 2 tablets every 6-8 hours as needed. Take the steroids as prescribed. Referrals: [facility] [Outside] - 2 days Kwesi Chavez, [employer] [Primary Care Provider] - 1 week HPI General Mode of arrival: ambulatory. Date/Time Provider Initiated Documentation: 05/17/23 09:21. Limitations to Documentation: no limitations. Information obtained by: patient, RN notes reviewed and old records reviewed. HPI Narrative: 58-year-old female with a past medical history of lymphoma presents with rash, low-grade fever which began yesterday. She reports that 13 days ago she began her first chemo treatment. She reports that Wednesday she woke up with a diffuse itchy rash which is red and non-raised, swelling to her face and she also reports rash 100.9, denies any pain cough shortness of breath or any other associated symptoms. She did speak with her oncology provider who reports that it could have been some of the chemo medication. She did take Benadryl yesterday none today. She did take 3 Advil prior to arrival. Related Data Home Medications Medication Instructions Recorded Confirmed multivitamin 1 ea PO DAILY 12/09/12 05/17/23 omega-3 fatty acids-fish oil 300 1 ea PO DAILY 12/09/12 05/17/23 mg-1,000 mg capsule latanoprost 0.005 % eye drops 1 drp OU DAILY 10/17/13 05/17/23 magnesium gluconate 27 mg 27 mg PO HS 01/15/20 05/17/23 magnesium (500 mg) tablet ascorbic acid (vitamin C) 1,000 mg 2 g PO DAILY 02/13/21 05/17/23 tablet timolol 0.5 % eye drops 1 drp ophthalmic (eye) BID 02/04/22 05/17/23 cranberry extract PO 03/09/22 03/16/23 hydrochlorothiazide 25 mg tablet 25 mg PO DAILY #90 tabs 03/08/23 05/17/23 acyclovir 400 mg tablet mg 05/17/23 allopurinol 300 mg tablet mg 05/17/23 prednisone 20 mg tablet 40 mg (2 x 20 mg) PO DAILY 5 days 05/17/23 #10 tabs Previous Rx's Medication Instructions Recorded hydrochlorothiazide 25 mg tablet 25 mg PO DAILY #90 tabs 03/08/23 prednisone 20 mg tablet 40 mg (2 x 20 mg) PO DAILY 5 days 05/17/23 #10 tabs Allergies Allergy/AdvReac Type Severity Reaction Status Date / Time amlodipine AdvReac Intermediate edema Verified 03/16/23 15:18 lisinopril AdvReac Intermediate cough Verified 03/16/23 15:18 General Stated Complaint: [facility]Medical SAIRA: 3 Review of Systems All systems reviewed & are unremarkable except as noted in HPI and below Constitutional Constitutional: Reports fever(s) Integumentary/Breasts Skin/Breast: Reports as per HPI, Reports rash and Reports skin pain Exam Narrative Exam Narrative: Constitutional: Alert and oriented x3. Appears stated age. Normal body habitus. Head: Normocephalic, no trauma. Eyes: Pupils PERRL, Red reflex noted, EOM's intact. Eyelids symmetrical without lesions, discharge, or swelling. ENT: Bilateral TM's WNL, External ear normal to inspection, no mastoid TTP, swelling, or erythema, Nasal turbinates WNL, no nasal discharge. Normal dentition, Posterior pharynx WNL, no exudate. Chest: RRR, Normal S1, S2, distal pulses intact. Resp: Lungs clear to auscultation bilaterally, no wheezes, rales, or rhonchi. Abdomen: Soft, non-distended, Normoactive bowel sounds all 4 quads. Musculoskeletal: Normal gait, Skin: Red scattered nummular to Sanchez rash noted to arms, abdomen, flushed face. Neurologic: Cranial nerves II-XII intact. Alert and oriented x 3. Motor: No deficits noted. Sensory: Intact bilaterally all 4 extremities. Hematologic/Lymphatic: No ecchymosis, no lymphadenopathy. Course Vital Signs Vital signs: Vital Signs Temperature 36.6 C 05/17/23 09:12 Pulse 87 05/17/23 09:12 Respiratory Rate 18 05/17/23 09:12 Blood Pressure 130/62 05/17/23 09:12 Temperature 36.6 C 05/17/23 09:12 Temperature Source Oral 05/17/23 09:12 Pulse 87 05/17/23 09:12 Respiratory Rate 18 05/17/23 09:12 Respiratory Effort Normal 05/17/23 10:42 Blood Pressure 130/62 05/17/23 09:12 Lab/Test Results Lab/Test Results: 05/17/23 10:54 Blood Blood Culture - Pending 05/17/23 10:54 Blood Blood Culture - Pending Medical Decision Making 58-year-old female with a past medical history of lymphoma presents with rash, low-grade fever which began yesterday. She reports that 13 days ago she began her first chemo treatment. She reports that Wednesday she woke up with a diffuse itchy rash which is red and non-raised, swelling to her face and she also reports rash 100.9, denies any pain cough shortness of breath or any other associated symptoms. She did speak with her oncology provider who reports that it could have been some of the chemo medication. She did take Benadryl yesterday none today. She did take 3 Advil prior to arrival. Labs are largely within normal limits. No evidence of neutropenia or abnormality. Liver enzymes are slightly elevated. No UTI, COVID flu RSV negative. Chest x-ray is within normal limits. Instructed patient to follow-up with oncologist and continue taking Benadryl as needed. Given a prescription for prednisone 40 mg for the next 5 days. Suspect allergic reaction to the chemotherapy agent. Other differential includes allergic reaction to Zofran. Patient remained hemodynamically stable alert and oriented throughout remainder of stay. This text was generated using [employer] dictation system, please disregard any oddities of phrase or misspellings. Imaging Data Radiologic Study: Imaging: X-Ray Radiologist's impression: EXAM: XR CHEST 2V PA LATERAL CLINICAL HISTORY: Fever TECHNIQUE: 2D digital imaging was performed. Two views. COMPARISON: CT CT CHEST PE CTA from 07/13/2022 FINDINGS: A port is noted over the right chest with the tip in the SVC. HEART: Normal size. Aorta: Not dilated. PULMONARY VASCULATURE: Normal. LUNGS: Clear. PLEURAL SPACE: No pleural effusion or pneumothorax. BONE:Unremarkable for age. Soft tissues: Unremarkable. IMPRESSION: No acute abnormality. Lab Data Lab results reviewed: Yes I reviewed the patient's lab results. Labs: 05/17/23 11:54 Blood Blood Culture - Pending 05/17/23 11:35 Blood Blood Culture - Pending Laboratory Tests Range/Units 05/17/23 05/17/23 11:35 12:24 WBC (4.4-10.8) 10^3/uL 4.57 RBC (3.93-5.22) 10^6/uL 4.33 Hgb (11.2-15.7) g/dL 13.1 Hct (36.0-46.0) % 38.6 MCV (80-95) fL 89 MCH (27.0-33.0) pg 30.3 MCHC (32.0-36.0) % 33.9 RDW (11.7-14.6) % 12.6 Plt Count (130-400) 10^3/uL 140 MPV (8.0-11.0) fL 9.8 Immature Gran % 0.0 Neutrophils % 76.0 Band Neutrophils % 3 Lymphocytes % 7.0 Atypical Lymphs % 8 Monocytes % 4.0 Eosinophils % 2.0 Basophils % 0.0 Nucleated RBC % (0.0-0.3) % 0.0 Absolute Neutrophils (1.2-6.7) 10^3/uL 3.61 Absolute Lymphocytes (1.2-3.4) 10^3/uL 0.69 L Absolute Monocytes (0.1-0.8) 10^3/uL 0.18 Absolute Eosinophils (0.0-0.7) 10^3/uL 0.09 Absolute Basophils (0.0-0.2) 10^3/uL 0.00 RBC Morphology Normal Sodium (136-145) mmol/L 140 Potassium (3.5-5.1) mmol/L 3.8 Chloride (98-107) mmol/L 101 Carbon Dioxide (21.0-32.0) mmol/L 30.9 Anion Gap (3-11) mmol/L 8.1 BUN (7-18) mg/dL 16 Creatinine (0.55-1.02) mg/dL 0.7 Est GFR (CKD-EPI 2020) (mL/min/1.73m2) 99.57 Glucose (74-106) mg/dL 93 Calcium (8.5-10.1) mg/dL 8.8 Magnesium (1.8-2.4) mg/dL 2.1 Total Bilirubin (0.2-1.0) mg/dL 0.6 AST (15-37) U/L 67 H ALT (14-59) U/L 78 H Alkaline Phosphatase (46-116) U/L 116 Total Protein (6.4-8.2) g/dL 6.6 Albumin (3.4-5.0) g/dL 3.5 Urine Color (Yellow) Yellow Urine Clarity (Clear) Clear Urine pH (5-8) 6.0 Ur Specific [place] (1.005-1.025) 1.010 Urine Protein (Neg-Trace) mg/dL Negative Urine Ketones (Negative) mg/dL Negative Urine Blood (Negative) Negative Urine Nitrite (Negative) Negative Urine Bilirubin (Negative) Negative Urine Urobilinogen (Up to 0.2) mg/dL 0.2 Ur Leukocyte Esterase (Negative) Negative Urine Glucose (Negative) mg/dL Negative COVID-19 Source Nasopharynx SARS-CoV-2 (PCR) (Negative) Negative Influenza Type A (PCR) (Negative) Negative Influenza Type B (PCR) (Negative) Negative RSV (PCR) (Negative) Negative Quality:SDOH Health Related Social Needs: No Data to Display PFSH All Active Problems (Updated 05/17/23 @ 13:47 by Priscilla Perez NP) Allergic reaction (Acute) Rash (Acute) Annual physical exam (Acute) Follicular lymphoma (Acute) Depressive disorder (Acute 12/07/11) Essential hypertension (Acute) Multinodular goiter (Acute 07/16/17) Remote evaluation including biopsy with [facility] system-benign per patient, no obvious clinical change as per 02/2021 Postmenopausal bleeding (Acute) 01/2020. Small amount. Endocervical polyp removed. No other episodes. Basal cell adenocarcinoma (Acute) 2016. upper breast. 2020. L buttock. followed by Makayla Fernandez Heart murmur (Acute) 02/2021-consistent with innocent murmur Abnormal chest CT (Acute) Medical History Lymphadenopathy Dry eyes Surgical History History of lymph node biopsy Right posterior triangle, 06/08/2022 History of cholecystectomy Family History Father Well adult Mother , 01/2021. Pneumonia Dementia Sister Cancer Lymphoma (pelvic mass) Brother Heart disease [place]. resided in [place]. Social History Smoking/Tobacco Use Status: Never Smoking risk assessment performed?: Yes Alcohol Intake: never Drug use: Never Substance use type: does not use Adopted: No Caregiver/Support person: No Foster care: No Household members: spouse and other Details: is named Maynor. 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 Pets and animals: No Sexually active: Yes Do you think of yourself as: straight/heterosexual Current gender identity: female What is your relationship status?: How often do you talk on the phone with friends or family?: three or more times per week How often do you get together with friends or relatives?: three or more times per week Do you belong to any clubs or organized social groups?: no Panel score (0-1 are the most socially isolated patients): 2 What type of physical activity do you participate in: walking Duration: 15-30 minutes/day Dulce/Orthodoxy: None Special dulce needs: No Seatbelt use: always Drive intox or ride w/intox tank truck driver: No Firearms in home: Yes Firearms unloaded and locked: Yes Do you feel safe at home: Yes Do you feel safe in your relationship?: Yes Victim of physical abuse: No Victim of emotional abuse: No Victim of sexual abuse: No Female Reproductive History Menstrual control method: none Menopause type: natural History History 1 Para Hx # Term Pregnancies 1 Multiple births Hx # Pregnancies Ectopic pregnancies AB induced Hx Number of Living Children AB spontaneous
[2023-05-17] MEDS: methylPREDNISolone SUCC 125 MG VIAL 80 MG IVP (11:52)
[2023-05-17] MEDS: diphenhydrAMINE 50 MG/ML VIAL 25 MG IVP (11:52)
[2023-05-17] MEDS: Famotidine 20 MG/2 ML VIAL IVP (11:52)
[2023-05-17 11:53] LABS: Abs Immature Grans 0.02 10^3/uL (0.0-0.06); HCT 38.6 % (36.0-46.0); HGB 13.1 g/dL (11.2-15.7); MCH 30.3 pg (27.0-33.0); MCHC 33.9 % (32.0-36.0); MCV 89 fL (80-95); MPV 9.8 fL (8.0-11.0); Platelet Count 140 10^3/uL (130-400); RBC 4.33 10^6/uL (3.93-5.22); RDW 12.6 % (11.7-14.6); RDW-SD 41.1 fL; WBC 4.57 10^3/uL (4.4-10.8)
[2023-05-17] MEDS: Normal Saline 500 ML IV (11:53)
[2023-05-17 12:07] LABS: ALT 78 U/L (14-59); AST 67 U/L (15-37); Albumin 3.5 g/dL (3.4-5.0); Alkaline Phosphatase 116 U/L (46-116); Anion Gap 8.1 mmol/L (3-11); BUN 16 mg/dL (7-18); Bilirubin, Total 0.6 mg/dL (0.2-1.0); CO2 30.9 mmol/L (21.0-32.0); CREATININE 0.7 mg/dL (0.55-1.02); Calcium 8.8 mg/dL (8.5-10.1); Chloride 101 mmol/L (98-107); Estimated GFR 99.57 (mL/min/1.73m2); Glucose 93 mg/dL (74-106); Magnesium 2.1 mg/dL (1.8-2.4); Potassium 3.8 mmol/L (3.5-5.1); Sodium 140 mmol/L (136-145); Total Protein 6.6 g/dL (6.4-8.2)
[2023-05-17 12:27] LABS: Absolute Eosinophil Count 0.09 10^3/uL (0.0-0.7); Absolute Lymphocyte Count 0.69 10^3/uL (1.2-3.4); Absolute Monocyte Count 0.18 10^3/uL (0.1-0.8); Absolute Neutrophil Count 3.61 10^3/uL (1.2-6.7); Atypical Lymphocytes % 8; Bands % 3; Diff Comment Manual Differential; RBC Morphology Normal
[2023-05-17 12:43] LABS: COVID-19 PCR Negative (Negative); Influenza A PCR Negative (Negative); Influenza B PCR Negative (Negative); RSV PCR Negative (Negative)
[2023-05-17 12:43] LABS: Bilirubin Negative (Negative); Blood Negative (Negative); Clarity Clear (Clear); Glucose Negative (Negative); Ketones Negative (Negative); Leukocyte Esterase Negative (Negative); Nitrite Negative (Negative); Urobilinogen 0.2 mg/dL (Up to 0.2)
[2023-05-17 12:45] LABS: Source Nasopharynx
--- NOTE | 2023-05-17 12:47 | DI.RAD_ITS ---
Exam(s) XR CHEST 2V PA LATERAL EXAM: XR CHEST 2V PA LATERAL CLINICAL HISTORY: Fever TECHNIQUE: 2D digital imaging was performed. Two views. COMPARISON: CT CT CHEST PE CTA from 07/13/2022 FINDINGS: A port is noted over the right chest with the tip in the SVC. HEART: Normal size. Aorta: Not dilated. PULMONARY VASCULATURE: Normal. LUNGS: Clear. PLEURAL SPACE: No pleural effusion or pneumothorax. BONE:Unremarkable for age. Soft tissues: Unremarkable. IMPRESSION: No acute abnormality. DATA REPOSITORY: RADIATION DOSE DELIVERED:
[2023-05-17] MEDS: Heparin 500 UNITS/5 ML SYRINGE (14:23)
[2023-05-17 14:25] VITALS: BP 102/65; PULSE 78; RESP 16; O2SAT 97
== END 2023-05-17 14:27 | disposition home or self-care (01) ==
PROVIDERS: Emergency Provider Registered Nurse Emergency; PCP Nurse Practitioner Family
DX: T78.49XA Other allergy, initial encounter (principal); R21 Rash and other nonspecific skin eruption; R50.9 Fever, unspecified; C85.90 Non-Hodgkin lymphoma, unspecified, unspecified site; Z11.52 Encounter for screening for COVID-19; Z92.21 Personal history of antineoplastic chemotherapy
CPT/HCPCS: 80053; 87040; 87637; 96361; 96374; 96375; 99284; 71046; 81003; 83735; 85025; J1200; J1642; J2919

== ENCOUNTER 2023-06-02 04:51 | Outpatient (RCR) | payer BC, SELFPAY ==
[2023-06-02] MEDS: Normal Saline Flush 10 ML SYR IVP (07:55)
[2023-06-02 08:24] LABS: Abs Immature Grans 0.02 10^3/uL (0.0-0.06); Absolute Basophil Count 0.02 10^3/uL (0.0-0.2); Absolute Lymphocyte Count 0.62 10^3/uL (1.2-3.4); Absolute Neutrophil Count 3.03 10^3/uL (1.2-6.7); Basophils % 0.5; HCT 37.6 % (36.0-46.0); HGB 12.7 g/dL (11.2-15.7); Immature Grans % 0.5; Lymphocytes % 15.2; MCH 30.5 pg (27.0-33.0); MCHC 33.8 % (32.0-36.0); MCV 90 fL (80-95); MPV 9.4 fL (8.0-11.0); Monocytes % 9.8; Platelet Count 105 10^3/uL (130-400); RBC 4.17 10^6/uL (3.93-5.22); RDW 12.5 % (11.7-14.6); RDW-SD 41.2 fL; WBC 4.09 10^3/uL (4.4-10.8)
[2023-06-02 08:46] LABS: ALT 43 U/L (14-59); AST 29 U/L (15-37); Albumin 3.6 g/dL (3.4-5.0); Alkaline Phosphatase 104 U/L (46-116); Anion Gap 6.9 mmol/L (3-11); BUN 16 mg/dL (7-18); Bilirubin, Total 0.7 mg/dL (0.2-1.0); CO2 31.1 mmol/L (21.0-32.0); CREATININE 0.7 mg/dL (0.55-1.02); Calcium 8.7 mg/dL (8.5-10.1); Chloride 105 mmol/L (98-107); Estimated GFR 99.57 (mL/min/1.73m2); Glucose 94 mg/dL (74-106); LDH 153 U/L (81-234); PHOSPHORUS 3.8 mg/dL (2.6-4.7); Potassium 3.7 mmol/L (3.5-5.1); Sodium 143 mmol/L (136-145); Total Protein 6.4 g/dL (6.4-8.2); Uric Acid 4.4 mg/dL (2.6-6.0)
== END 2023-06-08 23:59 | disposition home or self-care (01) ==
LOC: INF 04:51
PROVIDERS: Nurse Practitioner Adult Health; PCP Nurse Practitioner Family; Visit Provider Internal Medicine Hematology & Oncology
DX: C82.90 Follicular lymphoma, unspecified, unspecified site (principal)
CPT/HCPCS: 36591; 80053; 83615; 84100; 84550; 85025

== ENCOUNTER 2023-06-30 04:57 | Outpatient (RCR) | payer BC, SELFPAY ==
[2023-06-09] MEDS: Normal Saline Flush 10 ML SYR IVP (08:08)
[2023-06-09 08:42] LABS: Abs Immature Grans 0.01 10^3/uL (0.0-0.06); Absolute Basophil Count 0.02 10^3/uL (0.0-0.2); Absolute Eosinophil Count 0.02 10^3/uL (0.0-0.7); Absolute Lymphocyte Count 0.41 10^3/uL (1.2-3.4); Absolute Monocyte Count 0.54 10^3/uL (0.1-0.8); Absolute Neutrophil Count 2.25 10^3/uL (1.2-6.7); Basophils % 0.6 %; Eosinophils % 0.6 %; HCT 37.9 % (36.0-46.0); HGB 13.3 g/dL (11.2-15.7); Immature Grans % 0.3 %; Lymphocytes % 12.6 %; MCH 31.1 pg (27.0-33.0); MCHC 35.1 % (32.0-36.0); MCV 89 fL (80-95); MPV 9.7 fL (8.0-11.0); Monocytes % 16.6 %; Neutrophils % 69.3 %; Platelet Count 190 10^3/uL (130-400); RBC 4.28 10^6/uL (3.93-5.22); RDW-SD 41.6 fL; WBC 3.25 10^3/uL (4.4-10.8)
[2023-06-09 08:57] LABS: ALT 39 U/L (14-59); AST 18 U/L (15-37); Alkaline Phosphatase 97 U/L (46-116); BUN 19 mg/dL (7-18); CREATININE 0.7 mg/dL (0.55-1.02); Calcium 9.1 mg/dL (8.5-10.1); Chloride 101 mmol/L (98-107); Estimated GFR 99.57 (mL/min/1.73m2); Glucose 96 mg/dL (74-106); LDH 150 U/L (81-234); Potassium 3.5 mmol/L (3.5-5.1); Sodium 139 mmol/L (136-145); Total Protein 6.7 g/dL (6.4-8.2); Uric Acid 5.2 mg/dL (2.6-6.0)
[2023-06-30] MEDS: Normal Saline Flush 10 ML SYR IVP (08:00)
[2023-06-30 08:57] LABS: ALT 34 U/L (14-59); AST 27 U/L (15-37); Albumin 3.9 g/dL (3.4-5.0); Alkaline Phosphatase 114 U/L (46-116); Anion Gap 6.8 mmol/L (3-11); BUN 17 mg/dL (7-18); Bilirubin, Total 0.7 mg/dL (0.2-1.0); CO2 32.2 mmol/L (21.0-32.0); CREATININE 0.6 mg/dL (0.55-1.02); Calcium 9.2 mg/dL (8.5-10.1); Chloride 101 mmol/L (98-107); Estimated GFR 103.33 (mL/min/1.73m2); Glucose 97 mg/dL (74-106); LDH 183 U/L (81-234); PHOSPHORUS 4.5 mg/dL (2.6-4.7); Potassium 3.4 mmol/L (3.5-5.1); Sodium 140 mmol/L (136-145); Total Protein 6.6 g/dL (6.4-8.2); Uric Acid 4.9 mg/dL (2.6-6.0)
[2023-06-30 09:15] LABS: Abs Immature Grans 0.01 10^3/uL (0.0-0.06); Absolute Basophil Count 0.04 10^3/uL (0.0-0.2); Absolute Eosinophil Count 0.33 10^3/uL (0.0-0.7); Absolute Lymphocyte Count 0.49 10^3/uL (1.2-3.4); Absolute Monocyte Count 0.58 10^3/uL (0.1-0.8); Absolute Neutrophil Count 2.27 10^3/uL (1.2-6.7); Basophils % 1.1 %; Eosinophils % 8.9 %; HCT 38.7 % (36.0-46.0); HGB 13.5 g/dL (11.2-15.7); Immature Grans % 0.3 %; Lymphocytes % 13.2 %; MCHC 34.9 % (32.0-36.0); MCV 89 fL (80-95); Monocytes % 15.6 %; Neutrophils % 60.9 %; Platelet Count 160 10^3/uL (130-400); RBC 4.36 10^6/uL (3.93-5.22); RDW 12.2 % (11.7-14.6); RDW-SD 40.2 fL; WBC 3.72 10^3/uL (4.4-10.8)
== END 2023-07-09 23:59 | disposition home or self-care (01) ==
LOC: INF 04:57
PROVIDERS: Nurse Practitioner Adult Health; PCP Nurse Practitioner Family; Visit Provider Internal Medicine Hematology & Oncology
DX: C82.90 Follicular lymphoma, unspecified, unspecified site (principal)
CPT/HCPCS: 36591; 80053; 83615; 84100; 84550; 85025

== ENCOUNTER 2023-07-28 04:41 | Outpatient (RCR) | payer BC, SELFPAY ==
[2023-07-28 09:02] LABS: HCT 37.8 % (36.0-46.0); HGB 13.4 g/dL (11.2-15.7); MCH 30.7 pg (27.0-33.0); MCHC 35.4 % (32.0-36.0); MCV 87 fL (80-95); MPV 9.5 fL (8.0-11.0); Platelet Count 169 10^3/uL (130-400); RBC 4.36 10^6/uL (3.93-5.22); RDW 12.3 % (11.7-14.6); WBC 4.78 10^3/uL (4.4-10.8)
[2023-07-28 09:17] LABS: ALT 38 U/L (14-59); AST 29 U/L (15-37); Albumin 3.7 g/dL (3.4-5.0); Alkaline Phosphatase 124 U/L (46-116); BUN 16 mg/dL (7-18); Bilirubin, Total 0.6 mg/dL (0.2-1.0); CREATININE 0.7 mg/dL (0.55-1.02); Chloride 103 mmol/L (98-107); Estimated GFR 99.57 (mL/min/1.73m2); Glucose 96 mg/dL (74-106); LDH 228 U/L (81-234); PHOSPHORUS 4.1 mg/dL (2.6-4.7); Potassium 3.7 mmol/L (3.5-5.1); Sodium 142 mmol/L (136-145); Total Protein 6.5 g/dL (6.4-8.2); Uric Acid 5.3 mg/dL (2.6-6.0)
[2023-07-28 09:36] LABS: Absolute Eosinophil Count 0.33 10^3/uL (0.0-0.7); Absolute Monocyte Count 0.72 10^3/uL (0.1-0.8); Absolute Neutrophil Count 2.49 10^3/uL (1.2-6.7); Atypical Lymphocytes % 8 %
[2023-07-28 09:37] LABS: Diff Comment Manual Differential; Other Cells % 1; RBC Morphology Normal
[2023-07-28] MEDS: Normal Saline Flush 10 ML SYR IVP (11:09)
== END 2023-08-08 23:59 | disposition home or self-care (01) ==
LOC: INF 04:41
PROVIDERS: PCP Nurse Practitioner Family; Visit Provider Internal Medicine Hematology & Oncology
DX: C82.90 Follicular lymphoma, unspecified, unspecified site (principal)
CPT/HCPCS: 36591; 80053; 83615; 84100; 84550; 85025

== ENCOUNTER 2023-08-25 02:37 | Outpatient (RCR) | payer BC, SELFPAY ==
[2023-08-18] MEDS: Normal Saline Flush 10 ML SYR IVP (10:51)
[2023-08-18 11:01] LABS: Abs Immature Grans 0.01 10^3/uL (0.0-0.06); Absolute Basophil Count 0.03 10^3/uL (0.0-0.2); Absolute Lymphocyte Count 0.53 10^3/uL (1.2-3.4); Absolute Monocyte Count 0.51 10^3/uL (0.1-0.8); Absolute Neutrophil Count 2.08 10^3/uL (1.2-6.7); Basophils % 0.9 %; HCT 38.2 % (36.0-46.0); HGB 13.4 g/dL (11.2-15.7); Immature Grans % 0.3 %; Lymphocytes % 15.8 %; MCH 30.7 pg (27.0-33.0); MCHC 35.1 % (32.0-36.0); MCV 87 fL (80-95); MPV 9.3 fL (8.0-11.0); Monocytes % 15.2 %; Neutrophils % 61.8 %; Platelet Count 167 10^3/uL (130-400); RBC 4.37 10^6/uL (3.93-5.22); RDW 12.2 % (11.7-14.6); RDW-SD 39.4 fL; WBC 3.36 10^3/uL (4.4-10.8)
[2023-08-18 11:18] LABS: ALT 35 U/L (14-59); AST 30 U/L (15-37); Albumin 3.8 g/dL (3.4-5.0); Alkaline Phosphatase 125 U/L (46-116); Anion Gap 6.6 mmol/L (3-11); BUN 17 mg/dL (7-18); CO2 32.4 mmol/L (21.0-32.0); CREATININE 0.7 mg/dL (0.55-1.02); Calcium 9.3 mg/dL (8.5-10.1); Chloride 101 mmol/L (98-107); Estimated GFR 99.57 (mL/min/1.73m2); Glucose 119 mg/dL (74-106); LDH 214 U/L (81-234); PHOSPHORUS 4.1 mg/dL (2.6-4.7); Potassium 3.2 mmol/L (3.5-5.1); Sodium 140 mmol/L (136-145); Total Protein 6.9 g/dL (6.4-8.2)
[2023-08-25] MEDS: Normal Saline Flush 10 ML SYR IVP (09:42)
[2023-08-25 09:49] LABS: Absolute Basophil Count 0.03 10^3/uL (0.0-0.2); Absolute Eosinophil Count 0.21 10^3/uL (0.0-0.7); Absolute Lymphocyte Count 0.57 10^3/uL (1.2-3.4); Absolute Monocyte Count 0.56 10^3/uL (0.1-0.8); Absolute Neutrophil Count 1.98 10^3/uL (1.2-6.7); Basophils % 0.9 %; Eosinophils % 6.3 %; HCT 37.7 % (36.0-46.0); HGB 13.3 g/dL (11.2-15.7); MCH 30.6 pg (27.0-33.0); MCHC 35.3 % (32.0-36.0); MCV 87 fL (80-95); Monocytes % 16.7 %; Neutrophils % 59.1 %; Platelet Count 169 10^3/uL (130-400); RBC 4.34 10^6/uL (3.93-5.22); RDW 12.2 % (11.7-14.6); RDW-SD 38.9 fL; WBC 3.35 10^3/uL (4.4-10.8)
[2023-08-25 10:04] LABS: ALT 42 U/L (14-59); AST 37 U/L (15-37); Alkaline Phosphatase 118 U/L (46-116); Anion Gap 6.6 mmol/L (3-11); BUN 16 mg/dL (7-18); Bilirubin, Total 0.73 mg/dL (0.2-1.0); CO2 31.4 mmol/L (21.0-32.0); CREATININE 0.6 mg/dL (0.55-1.02); Calcium 9.2 mg/dL (8.5-10.1); Chloride 103 mmol/L (98-107); Estimated GFR 103.33 (mL/min/1.73m2); Glucose 97 mg/dL (74-106); LDH 208 U/L (81-234); PHOSPHORUS 4.2 mg/dL (2.6-4.7); Potassium 3.5 mmol/L (3.5-5.1); Sodium 141 mmol/L (136-145); Total Protein 6.7 g/dL (6.4-8.2); Uric Acid 5.7 mg/dL (2.6-6.0)
== END 2023-09-08 23:59 | disposition home or self-care (01) ==
LOC: INF 02:37
PROVIDERS: Nurse Practitioner Adult Health; PCP Nurse Practitioner Family; Visit Provider Internal Medicine Hematology & Oncology
DX: C82.90 Follicular lymphoma, unspecified, unspecified site (principal); Z45.2 Encounter for adjustment and management of vascular access device
CPT/HCPCS: 36591; 80053; 83615; 84100; 84550; 85025

== ENCOUNTER 2023-09-22 02:35 | Outpatient (RCR) | payer BC, SELFPAY ==
[2023-09-22 09:24] LABS: Abs Immature Grans 0.01 10^3/uL (0.0-0.06); Absolute Basophil Count 0.03 10^3/uL (0.0-0.2); Absolute Eosinophil Count 0.21 10^3/uL (0.0-0.7); Absolute Lymphocyte Count 0.42 10^3/uL (1.2-3.4); Absolute Monocyte Count 0.55 10^3/uL (0.1-0.8); Absolute Neutrophil Count 2.45 10^3/uL (1.2-6.7); Basophils % 0.8 %; Eosinophils % 5.7 %; HCT 38.6 % (36.0-46.0); HGB 13.6 g/dL (11.2-15.7); Immature Grans % 0.3 %; Lymphocytes % 11.4 %; MCH 30.8 pg (27.0-33.0); MCHC 35.2 % (32.0-36.0); MCV 88 fL (80-95); MPV 9.7 fL (8.0-11.0); Neutrophils % 66.8 %; Platelet Count 155 10^3/uL (130-400); RBC 4.41 10^6/uL (3.93-5.22); RDW 12.3 % (11.7-14.6); RDW-SD 39.4 fL; WBC 3.67 10^3/uL (4.4-10.8)
[2023-09-22] MEDS: Normal Saline Flush 10 ML SYR IVP (09:38)
[2023-09-22 09:39] LABS: ALT 35 U/L (14-59); AST 31 U/L (15-37); Albumin 3.8 g/dL (3.4-5.0); Alkaline Phosphatase 123 U/L (46-116); Anion Gap 6.8 mmol/L (3-11); BUN 15 mg/dL (7-18); Bilirubin, Total 0.69 mg/dL (0.2-1.0); CO2 32.2 mmol/L (21.0-32.0); CREATININE 0.6 mg/dL (0.55-1.02); Calcium 9.4 mg/dL (8.5-10.1); Chloride 103 mmol/L (98-107); Estimated GFR 103.33 (mL/min/1.73m2); Glucose 89 mg/dL (74-106); LDH 204 U/L (81-234); Potassium 3.4 mmol/L (3.5-5.1); Sodium 142 mmol/L (136-145); Total Protein 6.7 g/dL (6.4-8.2); Uric Acid 4.7 mg/dL (2.6-6.0)
== END 2023-10-09 23:59 | disposition home or self-care (01) ==
LOC: INF 02:35
PROVIDERS: PCP Nurse Practitioner Family; Visit Provider Internal Medicine Hematology & Oncology
DX: C82.90 Follicular lymphoma, unspecified, unspecified site (principal); Z45.2 Encounter for adjustment and management of vascular access device
CPT/HCPCS: 36591; 80053; 83615; 84100; 84550; 85025

== ENCOUNTER 2023-11-03 10:01 | Outpatient (RCR) | payer BC, SELFPAY ==
[2023-11-03] MEDS: Normal Saline Flush 10 ML SYR IVP (10:12)
[2023-11-03 10:18] LABS: Abs Immature Grans 0.01 10^3/uL (0.0-0.06); Absolute Basophil Count 0.03 10^3/uL (0.0-0.2); Absolute Eosinophil Count 0.28 10^3/uL (0.0-0.7); Absolute Lymphocyte Count 0.49 10^3/uL (1.2-3.4); Absolute Monocyte Count 0.52 10^3/uL (0.1-0.8); Absolute Neutrophil Count 2.58 10^3/uL (1.2-6.7); Basophils % 0.8 %; Eosinophils % 7.2 %; HCT 37.2 % (36.0-46.0); HGB 13.1 g/dL (11.2-15.7); Immature Grans % 0.3 %; Lymphocytes % 12.5 %; MCH 31.2 pg (27.0-33.0); MCHC 35.2 % (32.0-36.0); MCV 89 fL (80-95); MPV 9.4 fL (8.0-11.0); Monocytes % 13.3 %; Neutrophils % 65.9 %; Platelet Count 167 10^3/uL (130-400); RDW 12.6 % (11.7-14.6); RDW-SD 40.6 fL; WBC 3.91 10^3/uL (4.4-10.8)
[2023-11-03 10:39] LABS: ALT 33 U/L (14-59); AST 31 U/L (15-37); Alkaline Phosphatase 132 U/L (46-116); Anion Gap 7.2 mmol/L (3-11); BUN 18 mg/dL (7-18); Bilirubin, Total 0.57 mg/dL (0.2-1.0); CO2 31.8 mmol/L (21.0-32.0); CREATININE 0.7 mg/dL (0.55-1.02); Calcium 9.3 mg/dL (8.5-10.1); Chloride 100 mmol/L (98-107); Estimated GFR 99.57 (mL/min/1.73m2); Glucose 102 mg/dL (74-106); LDH 213 U/L (81-234); PHOSPHORUS 4.4 mg/dL (2.6-4.7); Potassium 3.3 mmol/L (3.5-5.1); Sodium 139 mmol/L (136-145); Total Protein 6.9 g/dL (6.4-8.2); Uric Acid 4.6 mg/dL (2.6-6.0)
== END 2023-11-08 23:59 | disposition home or self-care (01) ==
LOC: INF 10:01
PROVIDERS: Nurse Practitioner Adult Health; PCP Nurse Practitioner Family; Visit Provider Internal Medicine Hematology & Oncology
DX: C82.90 Follicular lymphoma, unspecified, unspecified site (principal)
CPT/HCPCS: 36591; 80053; 83615; 84100; 84550; 85025

== ENCOUNTER 2023-12-08 18:45 | Emergency (ER) | payer BC, SELFPAY ==
[2023-12-08 18:46] VITALS: BP 163/92; PULSE 93; RESP 15; TEMP 36.6; O2SAT 98
--- NOTE | 2023-12-08 19:38 | W.ED.GENAD ---
Discharge Plan Disposition Patient Disposition: Home Discharge Details Clinical Impression: Abrasion of face, Hx of falling, Abrasion of knee, left Primary Care Provider: Kwesi Chavez ED Provider: Sven Rockwell Home Meds and New Rx's Prescriptions: Continued timolol 0.5 % drops 1 drp ophthalmic (eye) BID magnesium gluconate 27 mg magnesium (500 mg) tablet 27 mg PO HS cranberry extract 1 tab PO DAILY multivitamin 1 EACH tablet 1 ea PO DAILY omega-3 fatty acids-fish oil 1 EACH capsule 1 ea PO DAILY latanoprost 2.5 ML drops 1 drp OU DAILY ascorbic acid (vitamin C) 1,000 mg tablet 2 g PO DAILY Rx Instructions: 2 TABS DAILY hydrochlorothiazide 25 mg tablet 25 mg PO DAILY Qty: 90 3RF acyclovir 400 mg tablet 400 mg PO BID Patient Comments: TAKE ONE TABLET BY MOUTH TWO TIMES A DAY Discharge Instructions Instructions: Abrasions ED Additional Instructions: You were seen in the emergency department following your fall. You are found to have abrasions. Please return to the emergency department if you develop streaking signs of infection fevers chills nausea or vomiting. Please also return if you become confused. For your pain please take medications as follows: 1. Take acetaminophen (Tylenol), 1,000 mg (two 500 mg tabs) every 6 hours [2. Take ibuprofen (Advil), 400 mg every 6 hours.] Discharge Data Discharge Date/Time-TO BE ENTERED AT DEPARTURE: 12/08/23 20:28 HPI General Date/Time Provider Initiated Documentation: 12/08/23 19:38. HPI Narrative: MDM Primary survey intact. Reassuring shock index. Secondary survey patient has abrasions to left side of her face and signs of trace left recent epistaxis. No obvious deformity to the nose. Based on [place] CT head criteria I did not perform CT head. [place] Head CT Criteria Major Criteria GCS < 15 : [No] Open or depressed skull Fx: [No] Sign of Basilar Skull Fx: [No] > 2 Episodes Vomiting: [No] Anticoagulation: [No] Age > 65: [No] Minor Criteria Retrograde Amnesia >30min: [No] Dangerous Mechanism: [No] Per [place] head CT rules, CT head not obtained. The patient had a GCS of 15, no open/depressed skull fracture, no signs of basilar skull fracture (hemotympanum, raccoon eyes, damico's sign, CSF Magdaleno/Rhinorrhea), no vomiting, and is less than 65 years of age. Per Nexus criteria, cervical CT not obtained. The patient had no c-spine midline tenderness, no evidence of intoxication, was AAOx3, had no focal neurological deficits, and no painful distracting injuries. Equal breath sounds and no hypoxia so I was not suspicious for pneumothorax. Patient had no preceding chest pain dizziness syncope no shortness of breath so I did not feel that her presentation represented ACS CVA nor PE so I did not feel she required additional ECG lab work or imaging. We discussed that she should return to the ED if she develops acute signs of infection or any fevers. Her wounds were cleaned in the ED. She was discharged with empiric trial of expectant outpatient management. HPI This is a 58-year-old female not on any anticoagulants arrived to the emergency by via private vehicle with her following a fall. Patient reports that she was walking up a set of stairs towards a bird feeder. She tripped after inadvertently losing her balance. She struck her face and her nose. She feels as if she might of had some bleeding from her nose. She did not lose consciousness. No preceding chest pain nausea vomiting dizziness no shortness of breath. Exam General: Well-appearing in no acute distress speaking in complete sentences. Head: Normocephalic, atraumatic. Eye:[Pupils equal, round reactive to light.] Extraocular eye movements intact. No conjunctival injection. No scleral icterus. Ear, nose, mouth, throat: Stigmata of recent epistaxis left naris. Patient has scattered left-sided facial abrasions. No lacerations. Normal voice, handling secretions normally. Bilateral TMs clear. Neck: Trachea midline. Cardiovascular: Well-perfused distal extremities. Respiratory: Nonlabored respiration. Clear lungs bilaterally. Gastrointestinal: Nondistended abdomen. Musculoskeletal: Nontender bilateral upper extremities. Pelvis stable. Right lower extremity nontender. Left lower extremity superficial abrasion to the proximal left tibia. Full range of motion in knee. Left foot warm well-perfused. No lacerations. No significant underlying bony tenderness. Skin: Normal for age and race, grossly normal temperature and turgor. No acute rash. Neurologic: Alert and appropriate, no apparent acute deficits. GCS 15 Psychiatric: Mood and manner are appropriate. Grooming and personal hygiene are appropriate. Related Data Home Medications ?Medication ?Instructions ?Recorded ?Confirmed multivitamin 1 ea PO DAILY 12/09/12 12/08/23 omega-3 fatty acids-fish oil 300 1 ea PO DAILY 12/09/12 12/08/23 mg-1,000 mg capsule latanoprost 0.005 % eye drops 1 drp OU DAILY 10/17/13 12/08/23 magnesium gluconate 27 mg 27 mg PO HS 01/15/20 12/08/23 magnesium (500 mg) tablet ascorbic acid (vitamin C) 1,000 mg 2 g PO DAILY 02/13/21 12/08/23 tablet timolol 0.5 % eye drops 1 drp ophthalmic (eye) BID 02/04/22 12/08/23 cranberry extract 1 tab PO DAILY 03/09/22 12/08/23 hydrochlorothiazide 25 mg tablet 25 mg PO DAILY #90 tabs 03/08/23 12/08/23 acyclovir 400 mg tablet 400 mg PO BID 05/17/23 12/08/23 Previous Rx's ?Medication ?Instructions ?Recorded hydrochlorothiazide 25 mg tablet 25 mg PO DAILY #90 tabs 03/08/23 Allergies Allergy/AdvReac Type Severity Reaction Status Date / Time amlodipine AdvReac Intermediate edema Verified 12/08/23 18:51 lisinopril AdvReac Intermediate cough Verified 12/08/23 18:51 General Stated Complaint: Fall/Non TraumaCriteria SAIRA: 4 Course Vital Signs Vital signs: Vital Signs Temperature 36.6 C 12/08/23 18:46 Pulse 93 H 12/08/23 18:46 Respiratory Rate 15 12/08/23 18:46 Blood Pressure 163/92 H 12/08/23 18:46 Pulse Oximetry 98 12/08/23 18:46 Temperature 36.6 C 12/08/23 18:46 Pulse 93 H 12/08/23 18:46 Respiratory Rate 15 12/08/23 18:46 Respiratory Effort Normal 12/08/23 18:50 Blood Pressure 163/92 H 12/08/23 18:46 Blood Pressure Position Sitting 12/08/23 18:46 Pulse Oximetry 98 12/08/23 18:46 Medical Decision Making Quality:SDOH Health Related Social Needs: No Data to Display PFSH All Active Problems (Updated 12/08/23 @ 20:04 by Sven Rockwell MD) Abrasion of knee, left (Acute) Hx of falling (Acute) Abrasion of face (Acute) Annual physical exam (Acute) Follicular lymphoma (Acute) Depressive disorder (Acute 12/07/11) Essential hypertension (Acute) Multinodular goiter (Acute 07/16/17) Remote evaluation including biopsy with [facility] system-benign per patient, no obvious clinical change as per 02/2021 Postmenopausal bleeding (Acute) 01/2020. Small amount. Endocervical polyp removed. No other episodes. Basal cell adenocarcinoma (Acute) 2016. upper breast. 2020. L buttock. followed by Makayla Fernandez Heart murmur (Acute) 02/2021-consistent with innocent murmur Abnormal chest CT (Acute) Medical History Lymphadenopathy Dry eyes Surgical History History of lymph node biopsy Right posterior triangle, 06/08/2022 History of cholecystectomy Family History Father Well adult Mother , 01/2021. Pneumonia Dementia Sister Cancer Lymphoma (pelvic mass) Brother Heart disease [place]. resided in [place]. Social History Smoking/Tobacco Use Status: Never Smoking risk assessment performed?: Yes Alcohol Intake: never Drug use: Never Substance use type: does not use Adopted: No Caregiver/Support person: No Foster care: No Household members: spouse and other Details: is named Maynor. 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 Pets and animals: No Sexually active: Yes Do you think of yourself as: straight/heterosexual Current gender identity: female What is your relationship status?: How often do you talk on the phone with friends or family?: three or more times per week How often do you get together with friends or relatives?: three or more times per week Do you belong to any clubs or organized social groups?: no Panel score (0-1 are the most socially isolated patients): 2 What type of physical activity do you participate in: walking Duration: 15-30 minutes/day Dulce/Jewish: None Special dulce needs: No Seatbelt use: always Drive intox or ride w/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
[2023-12-08] MEDS: Oxymetazolone 0.05% SPRAY 15 ML BTL NS (20:17)
[2023-12-08 20:26] VITALS: BP 134/72; PULSE 67; RESP 16; TEMP 36.6; O2SAT 99
== END 2023-12-08 20:28 | disposition home or self-care (01) ==
PROVIDERS: Emergency Provider Emergency Medicine; PCP Nurse Practitioner Family
DX: S00.31XA Abrasion of nose, initial encounter (principal); S80.212A Abrasion, left knee, initial encounter; I10 Essential (primary) hypertension; W01.0XXA Fall on same level from slipping, tripping and stumbling without subsequent striking against object, initial encounter; Y93.01 Activity, walking, marching and hiking; Y92.017 Garden or yard in single-family (private) house as the place of occurrence of the external cause
CPT/HCPCS: 99283

== ENCOUNTER 2023-12-29 02:02 | Outpatient (RCR) | payer BC, SELFPAY ==
[2023-12-15 11:32] LABS: Abs Immature Grans 0.01 10^3/uL (0.0-0.06); Absolute Basophil Count 0.03 10^3/uL (0.0-0.2); Absolute Lymphocyte Count 0.42 10^3/uL (1.2-3.4); Absolute Monocyte Count 0.47 10^3/uL (0.1-0.8); Absolute Neutrophil Count 2.49 10^3/uL (1.2-6.7); Basophils % 0.8 %; Eosinophils % 5.5 %; HGB 13.7 g/dL (11.2-15.7); Immature Grans % 0.3 %; Lymphocytes % 11.6 %; MCH 30.9 pg (27.0-33.0); MCHC 35.1 % (32.0-36.0); MCV 88 fL (80-95); MPV 9.9 fL (8.0-11.0); Neutrophils % 68.8 %; Platelet Count 164 10^3/uL (130-400); RBC 4.43 10^6/uL (3.93-5.22); RDW 11.9 % (11.7-14.6); RDW-SD 38.5 fL; WBC 3.62 10^3/uL (4.4-10.8)
[2023-12-15 12:13] LABS: ALT 34 U/L (14-59); AST 32 U/L (15-37); Albumin 3.9 g/dL (3.4-5.0); Alkaline Phosphatase 122 U/L (46-116); Anion Gap 7.9 mmol/L (3-11); BUN 18 mg/dL (7-18); Bilirubin, Total 0.72 mg/dL (0.2-1.0); CO2 32.1 mmol/L (21.0-32.0); CREATININE 0.8 mg/dL (0.55-1.02); Calcium 9.5 mg/dL (8.5-10.1); Chloride 104 mmol/L (98-107); Estimated GFR 84.82 (mL/min/1.73m2); Glucose 124 mg/dL (74-106); LDH 199 U/L (81-234); PHOSPHORUS 4.2 mg/dL (2.6-4.7); Sodium 144 mmol/L (136-145); Total Protein 6.7 g/dL (6.4-8.2); Uric Acid 5.3 mg/dL (2.6-6.0)
[2023-12-15 12:20] LABS: Potassium 2.8 mmol/L (3.5-5.1)
[2023-12-29] MEDS: Normal Saline Flush 10 ML SYR IVP (10:30)
[2023-12-29 13:32] LABS: ALT 35 U/L (14-59); AST 24 U/L (15-37); Albumin 3.9 g/dL (3.4-5.0); Alkaline Phosphatase 124 U/L (46-116); Anion Gap 8.2 mmol/L (3-11); BUN 16 mg/dL (7-18); Bilirubin, Total 0.62 mg/dL (0.2-1.0); CO2 30.8 mmol/L (21.0-32.0); CREATININE 0.7 mg/dL (0.55-1.02); Calcium 9.4 mg/dL (8.5-10.1); Chloride 105 mmol/L (98-107); Estimated GFR 99.57 (mL/min/1.73m2); Glucose 96 mg/dL (74-106); Potassium 3.7 mmol/L (3.5-5.1); Sodium 144 mmol/L (136-145); Total Protein 6.7 g/dL (6.4-8.2)
== END 2024-01-08 23:59 | disposition home or self-care (01) ==
LOC: INF 02:02
PROVIDERS: Nurse Practitioner Adult Health; PCP Nurse Practitioner Family; Visit Provider Internal Medicine Hematology & Oncology
DX: C82.90 Follicular lymphoma, unspecified, unspecified site (principal); Z45.2 Encounter for adjustment and management of vascular access device
CPT/HCPCS: 36591; 80053; 96523; 83615; 84100; 84550; 85025

== ENCOUNTER 2024-02-16 03:47 | Outpatient (RCR) | payer BC, SELFPAY ==
[2024-02-16 09:31] LABS: Abs Immature Grans 0.01 10^3/uL (0.0-0.06); Absolute Basophil Count 0.05 10^3/uL (0.0-0.2); Absolute Lymphocyte Count 0.52 10^3/uL (1.2-3.4); Absolute Monocyte Count 0.61 10^3/uL (0.1-0.8); Absolute Neutrophil Count 3.03 10^3/uL (1.2-6.7); Basophils % 1.1 %; Eosinophils % 4.5 %; HCT 43.1 % (36.0-46.0); HGB 15.3 g/dL (11.2-15.7); Immature Grans % 0.2 %; Lymphocytes % 11.8 %; MCH 31.6 pg (27.0-33.0); MCHC 35.5 % (32.0-36.0); MCV 89 fL (80-95); MPV 9.9 fL (8.0-11.0); Monocytes % 13.8 %; Neutrophils % 68.6 %; Platelet Count 180 10^3/uL (130-400); RBC 4.84 10^6/uL (3.93-5.22); RDW 11.8 % (11.7-14.6); RDW-SD 38.1 fL; WBC 4.42 10^3/uL (4.4-10.8)
[2024-02-16 09:46] LABS: ALT 33 U/L (14-59); AST 29 U/L (15-37); Albumin 4.4 g/dL (3.4-5.0); Alkaline Phosphatase 122 U/L (46-116); Anion Gap 7.2 mmol/L (3-11); BUN 20 mg/dL (7-18); CO2 34.8 mmol/L (21.0-32.0); CREATININE 0.8 mg/dL (0.55-1.02); Calcium 10.1 mg/dL (8.5-10.1); Chloride 102 mmol/L (98-107); Estimated GFR 84.82 (mL/min/1.73m2); Glucose 99 mg/dL (74-106); LDH 197 U/L (81-234); PHOSPHORUS 4.4 mg/dL (2.6-4.7); Potassium 3.2 mmol/L (3.5-5.1); Sodium 144 mmol/L (136-145); Total Protein 7.2 g/dL (6.4-8.2); Uric Acid 5.7 mg/dL (2.6-6.0)
== END 2024-03-10 23:59 | disposition home or self-care (01) ==
LOC: INF 03:47
PROVIDERS: PCP Nurse Practitioner Family; Visit Provider Internal Medicine Hematology & Oncology
DX: C82.90 Follicular lymphoma, unspecified, unspecified site (principal)
CPT/HCPCS: 36415; 36591; 80053; 83615; 84100; 84550; 85025

== ENCOUNTER 2024-03-14 16:28 | Outpatient (REF) | payer BC, SELFPAY ==
--- NOTE | 2024-03-14 16:00 | PAPFT_PTH ---
PATIENT: Bel Carballo LOC: [facility] U#:[id number] AGE/SX: 59/F ROOM: RE03/14/[address]: Matilda Lemon : 1965 BED: DIS: 03/14/2024 SPEC #: [id number] RECD: 03/14/24 17:42 STATUS: LEVI REPrachi #: [id number] YOSI: 03/14/24 16:[address]: Matilda Lemon DEPT: [facility] Cytology RECD BY: Yeni Valenzuela ENTERED: 03/14/24 17:42 SP TYPE: PAPFT OTHR DR: Kwesi Fisher, RAÚL Tissues: 1 - CX/ENDOCX FOR PAP SMEARS Procedures: PAP THIN PREP/[facility] Screening HPV DNA PROBE Comments: [id number] (HPV 16 & 18/45)
== END 2024-03-14 16:29 | disposition home or self-care (01) ==
LOC: LBN 16:28
PROVIDERS: PCP Nurse Practitioner Family; Visit Provider Obstetrics & Gynecology Gynecology
DX: Z12.39 Encounter for other screening for malignant neoplasm of breast (principal); Z01.419 Encounter for gynecological examination (general) (routine) without abnormal findings; N95.1 Menopausal and female climacteric states
CPT/HCPCS: 88142; 87624

== ENCOUNTER 2024-04-05 01:47 | Outpatient (CLI) | payer BC, SELFPAY ==
--- NOTE | 2024-04-05 15:45 | DI.MAMMO_ITS ---
Exam(s) MAMMO SCREENING EXAM: MAMMO SCREENING CLINICAL HISTORY: screening TECHNIQUE: Mammograms were interpreted according to the usual protocol including computer analysis w [employer] CAD system, tomosynthesis and C-view imaging. COMPARISON: 2014 through 2023 FINDINGS: The breasts are composed of scattered fibroglandular densities, Breast Density category B. No suspicious masses or suspicious microcalcifications are seen. No skin thickening or abnormal axillary lymph nodes are seen. There has been no significant change from prior exams. IMPRESSION: BI-RADS Category 1, Negative mammogram Yearly screening mammography is recommended. Breast Density - Category B, scattered fibroglandular densities. A negative radiographic report should not delay biopsy if a dominant or clinically suspicious mass is present. Up to ten percent of cancers are not identified on mammography. A negative report may reinforce clinical impression. Adenosis and dense breasts may obscure an underlying neoplasm. False positive reports average 6 to 10%. Patient will receive a letter notifying them of these results.
== END 2024-04-05 02:07 ==
LOC: DI 01:47
PROVIDERS: PCP Nurse Practitioner Family; Visit Provider Obstetrics & Gynecology Gynecology
DX: Z12.31 Encounter for screening mammogram for malignant neoplasm of breast (principal); R92.323 Mammographic fibroglandular density, bilateral breasts
CPT/HCPCS: 77063; 77067

== ENCOUNTER 2024-04-12 02:53 | Outpatient (RCR) | payer BC, SELFPAY ==
[2024-04-12 14:06] LABS: Absolute Basophil Count 0.02 10^3/uL (0.0-0.2); Absolute Eosinophil Count 0.15 10^3/uL (0.0-0.7); Absolute Lymphocyte Count 0.72 10^3/uL (1.2-3.4); Absolute Monocyte Count 0.44 10^3/uL (0.1-0.8); Absolute Neutrophil Count 2.82 10^3/uL (1.2-6.7); Basophils % 0.5 %; Eosinophils % 3.6 %; HCT 40.3 % (36.0-46.0); HGB 13.9 g/dL (11.2-15.7); Lymphocytes % 17.3 %; MCH 30.8 pg (27.0-33.0); MCHC 34.5 % (32.0-36.0); MCV 89 fL (80-95); MPV 9.8 fL (8.0-11.0); Monocytes % 10.6 %; Platelet Count 182 10^3/uL (130-400); RBC 4.51 10^6/uL (3.93-5.22); RDW 11.8 % (11.7-14.6); RDW-SD 38.1 fL; WBC 4.15 10^3/uL (4.4-10.8)
[2024-04-12 14:24] LABS: ALT 47 U/L (14-59); AST 31 U/L (15-37); Albumin 4.1 g/dL (3.4-5.0); Alkaline Phosphatase 134 U/L (46-116); Anion Gap 4.5 mmol/L (3-11); BUN 14 mg/dL (7-18); Bilirubin, Total 0.66 mg/dL (0.2-1.0); CO2 35.5 mmol/L (21.0-32.0); CREATININE 0.9 mg/dL (0.55-1.02); Calcium 9.2 mg/dL (8.5-10.1); Chloride 103 mmol/L (98-107); Estimated GFR 73.19 (mL/min/1.73m2); Glucose 111 mg/dL (74-106); LDH 182 U/L (81-234); Potassium 3.6 mmol/L (3.5-5.1); Sodium 143 mmol/L (136-145); Total Protein 6.5 g/dL (6.4-8.2)
== END 2024-05-08 23:59 | disposition home or self-care (01) ==
LOC: INF 02:53
PROVIDERS: PCP Nurse Practitioner Family; Visit Provider Internal Medicine Hematology & Oncology
DX: C82.18 Follicular lymphoma grade II, lymph nodes of multiple sites (principal)
CPT/HCPCS: 36415; 80053; 83615; 85025

== ENCOUNTER 2024-06-07 01:28 | Outpatient (RCR) | payer BC, SELFPAY ==
[2024-06-07 14:02] LABS: Abs Immature Grans 0.01 10^3/uL (0.0-0.06); Absolute Basophil Count 0.03 10^3/uL (0.0-0.2); Absolute Eosinophil Count 0.11 10^3/uL (0.0-0.7); Absolute Lymphocyte Count 0.63 10^3/uL (1.2-3.4); Absolute Monocyte Count 0.51 10^3/uL (0.1-0.8); Absolute Neutrophil Count 3.02 10^3/uL (1.2-6.7); Basophils % 0.7 %; Eosinophils % 2.6 %; HCT 42.6 % (36.0-46.0); HGB 14.7 g/dL (11.2-15.7); Immature Grans % 0.2 %; Lymphocytes % 14.6 %; MCH 30.8 pg (27.0-33.0); MCHC 34.5 % (32.0-36.0); MCV 89 fL (80-95); MPV 9.6 fL (8.0-11.0); Monocytes % 11.8 %; Neutrophils % 70.1 %; Platelet Count 173 10^3/uL (130-400); RBC 4.77 10^6/uL (3.93-5.22); RDW-SD 39.5 fL; WBC 4.31 10^3/uL (4.4-10.8)
[2024-06-07 14:15] LABS: ALT 35 U/L (14-59); AST 34 U/L (15-37); Albumin 4.5 g/dL (3.4-5.0); Alkaline Phosphatase 127 U/L (46-116); Anion Gap 9.2 mmol/L (3-11); BUN 16 mg/dL (7-18); Bilirubin, Total 0.9 mg/dL (0.2-1.0); CO2 29.8 mmol/L (21.0-32.0); CREATININE 0.7 mg/dL (0.55-1.02); Calcium 9.7 mg/dL (8.5-10.1); Chloride 104 mmol/L (98-107); Estimated GFR 98.95 (mL/min/1.73m2); Glucose 102 mg/dL (74-106); LDH 203 U/L (81-234); Potassium 3.2 mmol/L (3.5-5.1); Sodium 143 mmol/L (136-145); Total Protein 6.9 g/dL (6.4-8.2)
== END 2024-06-07 23:59 | disposition home or self-care (01) ==
LOC: INF 01:28
PROVIDERS: PCP Nurse Practitioner Family; Visit Provider Internal Medicine Hematology & Oncology
DX: C82.18 Follicular lymphoma grade II, lymph nodes of multiple sites (principal)
CPT/HCPCS: 36415; 80053; 83615; 85025

== ENCOUNTER 2024-08-02 01:07 | Outpatient (RCR) | payer BC, SELFPAY ==
[2024-08-02 13:55] LABS: Abs Immature Grans 0.01 10^3/uL (0.0-0.06); Absolute Basophil Count 0.04 10^3/uL (0.0-0.2); Absolute Eosinophil Count 0.14 10^3/uL (0.0-0.7); Absolute Lymphocyte Count 0.66 10^3/uL (1.2-3.4); Absolute Monocyte Count 0.54 10^3/uL (0.1-0.8); Absolute Neutrophil Count 3.32 10^3/uL (1.2-6.7); Basophils % 0.8 %; HCT 42.4 % (36.0-46.0); HGB 14.8 g/dL (11.2-15.7); Immature Grans % 0.2 %; MCH 30.6 pg (27.0-33.0); MCHC 34.9 % (32.0-36.0); MCV 88 fL (80-95); MPV 9.8 fL (8.0-11.0); Monocytes % 11.5 %; Neutrophils % 70.5 %; Platelet Count 172 10^3/uL (130-400); RBC 4.84 10^6/uL (3.93-5.22); RDW 11.9 % (11.7-14.6); RDW-SD 38.3 fL; WBC 4.71 10^3/uL (4.4-10.8)
[2024-08-02 14:19] LABS: ALT 39 U/L (14-59); AST 30 U/L (15-37); Albumin 4.3 g/dL (3.4-5.0); Alkaline Phosphatase 125 U/L (46-116); Anion Gap 8.9 mmol/L (3-11); BUN 14 mg/dL (7-18); Bilirubin, Total 0.8 mg/dL (0.2-1.0); CO2 31.1 mmol/L (21.0-32.0); CREATININE 0.7 mg/dL (0.55-1.02); Calcium 9.3 mg/dL (8.5-10.1); Chloride 102 mmol/L (98-107); Estimated GFR 98.95 (mL/min/1.73m2); Glucose 106 mg/dL (74-106); LDH 196 U/L (81-234); Potassium 3.3 mmol/L (3.5-5.1); Sodium 142 mmol/L (136-145)
== END 2024-08-07 23:59 | disposition home or self-care (01) ==
LOC: INF 01:07
PROVIDERS: PCP Nurse Practitioner Family; Visit Provider Internal Medicine Hematology & Oncology
DX: C82.18 Follicular lymphoma grade II, lymph nodes of multiple sites (principal)
CPT/HCPCS: 36415; 80053; 82784; 83615; 85025

== ENCOUNTER 2024-10-18 14:54 | Outpatient (RCR) | payer BC, SELFPAY ==
[2024-10-18 15:46] LABS: Abs Immature Grans 0.02 10^3/uL (0.0-0.06); HCT 40.2 % (36.0-46.0); HGB 13.6 g/dL (11.2-15.7); Immature Grans % 0.4 %; MCH 30.0 pg (27.0-33.0); MCHC 33.8 % (32.0-36.0); MCV 89 fL (80-95); MPV 9.8 fL (8.0-11.0); Platelet Count 278 10^3/uL (130-400); RBC 4.54 10^6/uL (3.93-5.22); RDW 11.7 % (11.7-14.6); RDW-SD 37.5 fL; WBC 5.18 10^3/uL (4.4-10.8)
[2024-10-18 16:04] LABS: ALT 47 U/L (14-59); AST 31 U/L (15-37); Albumin 3.9 g/dL (3.4-5.0); Alkaline Phosphatase 185 U/L (46-116); Anion Gap 6.9 mmol/L (3-11); BUN 15 mg/dL (7-18); Bilirubin, Total 0.4 mg/dL (0.2-1.0); CO2 31.1 mmol/L (21.0-32.0); Calcium 9.3 mg/dL (8.5-10.1); Chloride 102 mmol/L (98-107); Glucose 115 mg/dL (74-106); LDH 246 U/L (81-234); Potassium 3.4 mmol/L (3.5-5.1); Sodium 140 mmol/L (136-145); Total Protein 6.9 g/dL (6.4-8.2)
== END 2024-11-07 23:59 | disposition home or self-care (01) ==
LOC: INF 14:54
PROVIDERS: PCP Nurse Practitioner Family; Visit Provider Internal Medicine Hematology & Oncology
DX: C82.18 Follicular lymphoma grade II, lymph nodes of multiple sites (principal)
CPT/HCPCS: 36415; 80053; 82784; 83605; 83615; 85025

== ENCOUNTER 2024-12-13 03:42 | Outpatient (RCR) | payer BC, SELFPAY ==
[2024-12-13 14:11] LABS: Abs Immature Grans 0.01 10^3/uL (0.0-0.06); HCT 40.9 % (36.0-46.0); HGB 14.0 g/dL (11.2-15.7); Immature Grans % 0.2 %; MCH 30.0 pg (27.0-33.0); MCHC 34.2 % (32.0-36.0); MCV 88 fL (80-95); MPV 9.5 fL (8.0-11.0); Platelet Count 182 10^3/uL (130-400); RBC 4.66 10^6/uL (3.93-5.22); RDW 12.4 % (11.7-14.6); RDW-SD 39.6 fL; WBC 5.69 10^3/uL (4.4-10.8)
[2024-12-13 14:28] LABS: ALT 39 U/L (14-59); AST 30 U/L (15-37); Albumin 4.0 g/dL (3.4-5.0); Alkaline Phosphatase 148 U/L (46-116); Anion Gap 10.9 mmol/L (3-11); BUN 13 mg/dL (7-18); Bilirubin, Total 0.5 mg/dL (0.2-1.0); CO2 30.1 mmol/L (21.0-32.0); Calcium 8.9 mg/dL (8.5-10.1); Chloride 103 mmol/L (98-107); Estimated GFR 84.30 (mL/min/1.73m2); Glucose 105 mg/dL (74-106); LDH 223 U/L (81-234); Potassium 3.4 mmol/L (3.5-5.1); Sodium 144 mmol/L (136-145); Total Protein 6.8 g/dL (6.4-8.2)
== END 2025-01-07 23:59 | disposition home or self-care (01) ==
LOC: INF 03:42
PROVIDERS: PCP Nurse Practitioner Family; Visit Provider Internal Medicine Hematology & Oncology
DX: C82.18 Follicular lymphoma grade II, lymph nodes of multiple sites (principal)
CPT/HCPCS: 36415; 80053; 82784; 83615; 85025

== ENCOUNTER 2025-01-08 20:47 | Outpatient (CLI) | payer BC, SELFPAY ==
[2025-01-08 16:34] LABS: TSH (W/Ref FT4) 0.56 uIU/mL (0.55-4.78)
== END 2025-01-08 20:48 | disposition home or self-care (01) ==
LOC: LBO 20:47
PROVIDERS: PCP Nurse Practitioner Family; Visit Provider Otolaryngology
DX: R05.3 Chronic cough (principal); E04.9 Nontoxic goiter, unspecified
CPT/HCPCS: 36415; 86376; 84443

== ENCOUNTER 2025-02-07 02:54 | Outpatient (CLI) | payer BC, SELFPAY | END 2025-02-07 02:55 | disposition home or self-care (01) | LOC: LBO 02:55 | PROVIDERS: PCP Nurse Practitioner Family; Visit Provider Nurse Practitioner Adult Health | DX: C82.18 Follicular lymphoma grade II, lymph nodes of multiple sites (principal) | CPT/HCPCS: 36415; 80053; 82784; 83615; 85025 ==